=== PATIENT | male | born 1945 | race American Indian/Alaskan Native ===

== ENCOUNTER 2017-08-23 01:49 | Inpatient (IN) | payer MEDICARE, OTHER ==
[~2017-08-23] VITALS: Ht 175.3 cm; Wt 88.8 kg
[~2017-08-23 01:49] MED LIST: BENA5TAB2 PO; CHOL100046 PO; DABI75CA3 PO; DIGO125T78 PO; DILT180C96 PO; DIPH25CA83 PO; FLO0.4C PO; GABA600T2 PO; GLIP5TAB13 PO; HYDR-569 PO; HYDR25TA4 PO; LISI-604 PO; LOVA20TA2 PO; METO-477 PO; MULT-955 PO; POTA10TA19 PO; SITA50TA PO
[2017-08-23] MEDS ORDERED: normal saline 1000ML IV soln IVB ONE (02:00)
[2017-08-23] MEDS ORDERED: nitroGLYCERIN 0.4mg SUBLingual tab SL PRN (02:00)
[2017-08-23] MEDS ORDERED: diltiazem 5mg/ml 5ml inj. IV ONE (02:00)
[2017-08-23] MEDS ORDERED: nitroGLYCERIN 0.4mg/hour patch TD ONE (02:00)
[2017-08-23 02:10] LABS: BASOPHILS % (AUTO) 0.2 % (0-1); EOSINOPHILS # (AUTO) 0.1 X10'3 (0-0.9); EOSINOPHILS % (AUTO) 1.1 % (0-6); HEMATOCRIT 40.5 % (42.0-52.0); HEMOGLOBIN 13.6 g/dl (14.0-17.9); LYMPHOCYTES # (AUTO) 1.3 X10'3 (1.1-4.8); MEAN CORPUSCULAR HEMOGLOBIN 34.5 PG (27.0-31.0); MEAN CORPUSCULAR HGB CONC 33.5 % (33.0-36.5); MEAN CORPUSCULAR VOLUME 103.1 FL (78-98); MEAN PLATELET VOLUME 9.5 FL (7.4-10.4); MONOCYTES # (AUTO) 0.5 X10'3 (0-0.9); MONOCYTES % (AUTO) 3.9 % (2-12); NEUTROPHILS # (AUTO) 9.7 X10'3 (1.8-7.7); NEUTROPHILS % (AUTO) 83.8 % (42-75); PLATELET COUNT 157 X10'3 (140-440); RED BLOOD COUNT 3.93 X10'6 (4.70-6.10); RED CELL DISTRIBUTION WIDTH 15.7 % (11.5-14.5); WHITE BLOOD COUNT 11.5 X10'3 (4.5-11.0)
[2017-08-23 02:17] LABS: INR 1.1 INR; PARTIAL THROMBOPLASTIN TIME 28 SECONDS (22-32); PROTHROMBIN TIME 11.4 SECONDS (9.0-12.0)
[2017-08-23 02:20] LABS: ALANINE AMINOTRANSFERASE 23 U/L (12-78); ALBUMIN 2.8 G/DL (3.4-5.0); ALBUMIN/GLOBULIN RATIO 0.8 (1.1-1.5); ALKALINE PHOSPHATASE 153 IU/L (46-116); ANION GAP 10 (8-16); ASPARTATE AMINO TRANSFERASE 19 U/L (10-37); BILIRUBIN,TOTAL 0.3 MG/DL (0.1-1.0); BLOOD UREA NITROGEN 9 MG/DL (7-18); BUN/CREATININE RATIO 9.6 (5.4-32.0); CALCIUM 8.1 MG/DL (8.5-10.1); CHLORIDE 107 MMOL/L (99-107); CREATININE 0.94 MG/DL (0.60-1.10); GLUCOSE 262 MG/DL (70-104); POTASSIUM 3.9 MMOL/L (3.5-5.1); SODIUM 139 MMOL/L (135-145); TOTAL CARBON DIOXIDE 22.5 MMOL/L (24-32); TOTAL PROTEIN 6.5 G/DL (6.4-8.2); eGFR 78 ML/MIN
[2017-08-23 02:30] LABS: MAGNESIUM 0.8 MG/DL (1.5-2.4)
[2017-08-23] MEDS ORDERED: metoclopramide 5 mg/ml inj IV PRN (02:30)
[2017-08-23] MEDS ORDERED: insulin Lispro (HumaLOG) vial - multi-dose SQ SCH (02:30)
[2017-08-23] MEDS ORDERED: acetaminophen 325mg tablet PO PRN ×2 (02:30)
[2017-08-23] MEDS ORDERED: dextrose ORAL solution 15 GM/59 ML bottle PO PRN ×2 (02:30)
[2017-08-23] MEDS ORDERED: mag hydrox/Alum hydrox/simeth 30ml oral suspension PO PRN (02:30)
[2017-08-23] MEDS ORDERED: HYDROcodone/acetaminophen 5mg/325mg tablet PO PRN (02:30)
[2017-08-23] MEDS ORDERED: acetaminophen 650mg rectal suppository RC PRN (02:30)
[2017-08-23] MEDS ORDERED: morphine sulfate 8 MG/ML SYRINGE IV PRN (02:30)
[2017-08-23] MEDS ORDERED: glucagon, human recombinant 1mg kit SUBCUT PRN (02:30)
[2017-08-23] MEDS ORDERED: dextrose 50%-water 50ml dispensing syringe IV PRN ×2 (02:30)
[2017-08-23] MEDS ORDERED: bisacodyl 10mg suppository rectal RC PRN (02:30)
[2017-08-23] MEDS ORDERED: ondansetron/PF 4mg/2ml inj IV PRN (02:30)
[2017-08-23] MEDS ORDERED: HYDROcodone/acetaminophen 10/325mg tab PO PRN (02:30)
[2017-08-23] MEDS ORDERED: diphenhydrAMINE 25mg capsule PO PRN (02:30)
[2017-08-23] MEDS ORDERED: MESSAGE TO PHARMACY PO ONE (02:30)
[2017-08-23] MEDS ORDERED: magnesium hydroxide 30ml (MOM) UD suspension PO PRN (02:30)
[2017-08-23] MEDS ORDERED: HYDROmorphone 1 mg/ml syringe IV PRN ×2 (02:30)
[2017-08-23] MEDS ORDERED: diphenhydrAMINE 50 mg/ml inj IV PRN (02:30)
[2017-08-23] MEDS ORDERED: magnesium 2GM in 50ml NS 50 ML IV ONE (02:35)
[2017-08-23] MEDS ORDERED: digoxin 250mcg/ml 2ml ampule IV ONE (02:40)
[2017-08-23] MEDS: morphine sulfate 8 MG/ML SYRINGE IV PRN ×2 (03:11→15:16)
[2017-08-23] MEDS ORDERED: morphine sulfate 8 MG/ML SYRINGE IV ONE (03:20)
[2017-08-23 04:30] VITALS: BP 148/91
[2017-08-23] MEDS ORDERED: magnesium 4gm in 100ml NS 100 ML IV PRN (05:50)
[2017-08-23] MEDS ORDERED: magnesium 2GM in 50ml NS 50 ML IV PRN (05:50)
[2017-08-23 06:00] VITALS: BP 147/99
[2017-08-23 06:00] LABS: HEMOGLOBIN A1C 6.3 % (4.5-6.2)
[2017-08-23 06:13] LABS: MAGNESIUM 1.4 MG/DL (1.5-2.4)
[2017-08-23] MEDS ORDERED: diltiazem CD 180mg cap (once-daily) PO SCH (08:00)
[2017-08-23] MEDS ORDERED: furosemide 10 MG/1 ML 10ml inj IV SCH (08:00)
[2017-08-23] MEDS ORDERED: dabigatran 150mg capsule PO SCH (08:00)
[2017-08-23] MEDS ORDERED: lisinopril 5mg tablet PO SCH (08:00)
[2017-08-23] MEDS: digoxin 125mcg (0.125mg) tablet PO SCH (08:07)
[2017-08-23] MEDS: docusate sod 100mg capsule PO SCH ×2 (08:07→21:50)
[2017-08-23] MEDS: magnesium Cl slow-release 64mg tablet PO PRN ×2 (08:07→16:44)
[2017-08-23] MEDS: atorvastatin 10mg tablet PO SCH (08:08)
[2017-08-23] MEDS: gabapentin 300mg capsule PO SCH (08:08)
[2017-08-23] MEDS: lisinopril 5mg tablet PO SCH (08:08)
[2017-08-23] MEDS: metoprolol tartrate 50mg tablet PO SCH ×2 (08:09→21:48)
[2017-08-23] MEDS: aspirin 81mg tablet.DR PO SCH (09:08)
[2017-08-23] MEDS ORDERED: heparin 10,000 units/1 ML INJ IV ONE ×2 (10:25→10:35)
[2017-08-23 11:00] VITALS: BP 128/77
[2017-08-23] MEDS ORDERED: albuterol 2.5 MG/3 ML nebule NEB PRN (13:30)
[2017-08-23] MEDS ORDERED: furosemide 20 MG/2 ML vial IV ONE (13:30)
[2017-08-23 15:00] VITALS: BP 124/75
[2017-08-23 15:01] LABS: ABG BASE EXCESS -2.4 mmol/L (-2.0-3.0); ABG HCO3 21.5 mmol/L (22.0-26.0); ABG OXYGEN SATURATION 89.8 % (95-98); ABG PCO2 (T) 34.8 mmHg (35.0-48.0); ABG PH (T) 7.408 (7.350-7.450); ABG PO2 (T) 56.8 mmHg (83-108); FCOHb 0.7 % (0.5-1.5); FLOW 14 L/min; FMetHb 0.2 % (0.3-1.12); TOTAL HEMOGLOBIN 15.3 G/dl (14.0-18.0)
[2017-08-23] MEDS: cefTRIAXone 1g/NS 100ml IVPB 100 ML IV SCH (16:42)
[2017-08-23] MEDS: potassium Cl 20 mEq SR tablet PO SCH ×2 (16:44→21:49)
[2017-08-23] MEDS: furosemide 10 MG/1 ML 10ml inj IV SCH ×2 (16:46→23:09)
[2017-08-23] MEDS ORDERED: etomidate 2mg/ml inj. ONE (17:00)
[2017-08-23] MEDS ORDERED: rocuronium 10mg/ml inj IV ONE (17:00)
[2017-08-23] MEDS: heparin 10,000 units/1 ML INJ IV PRN (18:30)
[2017-08-23 19:00] VITALS: BP 143/86
[2017-08-23] MEDS: tirofiban 5mg in NS 100mL 100 ML IV SCH ×2 (19:03→23:50)
[2017-08-23] MEDS: nitroGLYCERIN 0.2mg/hour patch TD SCH (19:04)
[2017-08-23 20:10] LABS: ABG HCO3 21.5 mmol/L (22.0-26.0); ABG OXYGEN SATURATION 93.8 % (95-98); ABG PCO2 (T) 34.2 mmHg (35.0-48.0); ABG PH (T) 7.418 (7.350-7.450); ABG PO2 (T) 68.6 mmHg (83-108); FCOHb 0.5 % (0.5-1.5); FLOW 40 L/min; FMetHb 0.2 % (0.3-1.12); FO2Hb 93.1 % (94-100); PATIENT TEMPERATURE 37.3; TOTAL HEMOGLOBIN 15.7 G/dl (14.0-18.0)
[2017-08-23] MEDS ORDERED: temazepam 15mg capsule PO PRN (21:00)
[2017-08-23] MEDS: tamsulosin 0.4mg capsule PO SCH (21:49)
[2017-08-23 23:00] VITALS: BP 105/65
[2017-08-23 23:36] LABS: ABG BASE EXCESS -3.9 mmol/L (-2.0-3.0); ABG HCO3 19.3 mmol/L (22.0-26.0); ABG OXYGEN SATURATION 98.1 % (95-98); ABG PCO2 (T) 30.9 mmHg (35.0-48.0); ABG PH (T) 7.415 (7.350-7.450); ABG PO2 (T) 101.4 mmHg (83-108); FCOHb 0.5 % (0.5-1.5); FMetHb 0.2 % (0.3-1.12); FO2Hb 97.4 % (94-100); MINUTE VOLUME 39 L/min; PATIENT TEMPERATURE 37.2; RESPIRATORY RATE 18 b/min; RESPIRATORY RATE (OBSERVED) 29 b/min; TIDAL VOLUME 866 mL; TOTAL HEMOGLOBIN 15.4 G/dl (14.0-18.0)
[2017-08-24] VITALS (17 sets, daily range): BP systolic 84–109; BP diastolic 54–75
[2017-08-24 02:30] LABS: BASOPHILS % (AUTO) 0.1 % (0-1); EOSINOPHILS % (AUTO) 0.2 % (0-6); HEMATOCRIT 44.2 % (42.0-52.0); HEMOGLOBIN 14.6 g/dl (14.0-17.9); LYMPHOCYTES # (AUTO) 1.1 X10'3 (1.1-4.8); LYMPHOCYTES % (AUTO) 4.5 % (21-51); MEAN CORPUSCULAR HEMOGLOBIN 34.2 PG (27.0-31.0); MEAN CORPUSCULAR HGB CONC 33.1 % (33.0-36.5); MEAN CORPUSCULAR VOLUME 103.4 FL (78-98); MEAN PLATELET VOLUME 9.7 FL (7.4-10.4); MONOCYTES # (AUTO) 0.7 X10'3 (0-0.9); MONOCYTES % (AUTO) 2.9 % (2-12); NEUTROPHILS # (AUTO) 22.8 X10'3 (1.8-7.7); NEUTROPHILS % (AUTO) 92.3 % (42-75); PLATELET COUNT 181 X10'3 (140-440); RED BLOOD COUNT 4.28 X10'6 (4.70-6.10); RED CELL DISTRIBUTION WIDTH 16.8 % (11.5-14.5); WHITE BLOOD COUNT 24.7 X10'3 (4.5-11.0)
[2017-08-24 02:45] LABS: ALANINE AMINOTRANSFERASE 32 U/L (12-78); ALBUMIN 2.7 G/DL (3.4-5.0); ALBUMIN/GLOBULIN RATIO 0.7 (1.1-1.5); ALKALINE PHOSPHATASE 132 IU/L (46-116); ANION GAP 10 (8-16); ASPARTATE AMINO TRANSFERASE 137 U/L (10-37); BILIRUBIN,TOTAL 0.9 MG/DL (0.1-1.0); BLOOD UREA NITROGEN 19 MG/DL (7-18); BUN/CREATININE RATIO 14.2 (5.4-32.0); CALCIUM 8.6 MG/DL (8.5-10.1); CHLORIDE 103 MMOL/L (99-107); CHOL/HDL RATIO 3.6 (0.00-4.99); CHOLESTEROL 174 MG/DL (0-200); CREATININE 1.34 MG/DL (0.60-1.10); GLUCOSE 246 MG/DL (70-104); HDL CHOLESTEROL 49 MG/DL (35-60); LDL CHOLESTEROL 111 MG/DL (50-100); MAGNESIUM 1.1 MG/DL (1.5-2.4); POTASSIUM 5.4 MMOL/L (3.5-5.1); SODIUM 137 MMOL/L (135-145); TOTAL CARBON DIOXIDE 23.7 MMOL/L (24-32); TOTAL PROTEIN 6.7 G/DL (6.4-8.2); TRIGLYCERIDES 169 MG/DL (20-135); eGFR 52 ML/MIN
[2017-08-24] MEDS: tirofiban 5mg in NS 100mL 100 ML IV SCH ×4 (05:36→22:57)
[2017-08-24] MEDS: heparin 10,000 units/1 ML INJ IV PRN (07:07)
[2017-08-24] MEDS: aspirin 81mg tablet.DR PO SCH (07:35)
[2017-08-24] MEDS: docusate sod 100mg capsule PO SCH ×2 (07:35→20:00)
[2017-08-24] MEDS: lisinopril 5mg tablet PO SCH (07:35)
[2017-08-24] MEDS: atorvastatin 10mg tablet PO SCH (07:35)
[2017-08-24] MEDS: metoprolol tartrate 50mg tablet PO SCH ×2 (07:35→20:00)
[2017-08-24] MEDS: furosemide 10 MG/1 ML 10ml inj IV SCH ×2 (07:35→16:22)
[2017-08-24] MEDS: gabapentin 300mg capsule PO SCH (07:35)
[2017-08-24] MEDS: digoxin 125mcg (0.125mg) tablet PO SCH (07:40)
[2017-08-24] MEDS: potassium Cl 20 mEq SR tablet PO SCH ×3 (07:41→21:00)
[2017-08-24] MEDS: cefTRIAXone 1g/NS 100ml IVPB 100 ML IV SCH (07:41)
[2017-08-24] MEDS: nitroGLYCERIN 0.2mg/hour patch TD SCH (07:42)
[2017-08-24] MEDS: magnesium Cl slow-release 64mg tablet PO PRN (07:44)
[2017-08-24] MEDS: cefepime 2g/NS 100ml ADVANTAGE 100 ML IV SCH ×2 (09:00→20:29)
[2017-08-24] MEDS ORDERED: morphine sulfate 8 MG/ML SYRINGE IV PRN ×2 (10:45)
[2017-08-24] MEDS ORDERED: NORepinephrine 8mg/ 250ml NS 250 ML IV ONE (10:49)
[2017-08-24] MEDS ORDERED: MIDAZolam 5mg/ml 2ml vial IV ONE (10:50)
[2017-08-24] MEDS ORDERED: NORepinephrine 8mg/ 250ml NS 250 ML IV SCH ×2 (10:50→11:20)
[2017-08-24] MEDS ORDERED: MIDAZolam 5mg/ml 2ml vial ONE (10:50)
[2017-08-24] MEDS ORDERED: ipratropium/albuterol 3ml nebule NEB PRN (11:30)
[2017-08-24 11:41] LABS: ABG BASE EXCESS -3.4 mmol/L (-2.0-3.0); ABG HCO3 24.3 mmol/L (22.0-26.0); ABG OXYGEN SATURATION 86.4 % (95-98); ABG PCO2 (T) 58.6 mmHg (35.0-48.0); ABG PH (T) 7.244 (7.350-7.450); ABG PO2 (T) 69.2 mmHg (83-108); FCOHb 0.4 % (0.5-1.5); FLOW 40 L/min; FMetHb 0.2 % (0.3-1.12); FO2Hb 85.9 % (94-100); MINUTE VOLUME 6 L/min; PATIENT TEMPERATURE 38.6; PEEP 8 cm H2O; RESPIRATORY RATE 14 b/min; RESPIRATORY RATE (OBSERVED) 14 b/min; TIDAL VOLUME 400 mL; TOTAL HEMOGLOBIN 14.3 G/dl (14.0-18.0)
[2017-08-24] MEDS: levoFLOXACIN-Levaquin 500mg/D5 100 ML IV SCH (11:46)
[2017-08-24] MEDS: DOBUTamine-DoBUTrex 500mg/D5W 250 ML IV SCH (12:04)
[2017-08-24 13:23] LABS: D-DIMER 1.08 MG/L FEU (0-0.50)
[2017-08-24] MEDS: methylPREDNISolone sod succ/PF 40mg inj. IV SCH ×2 (14:19→20:29)
[2017-08-24] MEDS ORDERED: gelatin sponge, absorbable (Gelfoam 100) sponge TP ONE (15:50)
[2017-08-24] MEDS: ipratropium/albuterol 3ml nebule NEB SCH ×3 (16:10→22:26)
[2017-08-24 17:46] LABS: ABG BASE EXCESS -2.5 mmol/L (-2.0-3.0); ABG HCO3 22.2 mmol/L (22.0-26.0); ABG PH (T) 7.384 (7.350-7.450); ABG PO2 (T) 152.2 mmHg (83-108); FCOHb 0.4 % (0.5-1.5); FMetHb 0.3 % (0.3-1.12); FO2Hb 98.3 % (94-100); MINUTE VOLUME 8 L/min; PEEP 10 cm H2O; RESPIRATORY RATE 18 b/min; RESPIRATORY RATE (OBSERVED) 18 b/min; TIDAL VOLUME 400 mL; TOTAL HEMOGLOBIN 13.6 G/dl (14.0-18.0)
[2017-08-24] MEDS: tamsulosin 0.4mg capsule PO SCH (20:30)
[2017-08-24] MEDS ORDERED: insulin regular, human vial - multi-dose SQ SCH (23:20)
[2017-08-25] VITALS (24 sets, daily range): BP systolic 83–128; BP diastolic 48–75
[2017-08-25] MEDS ORDERED: insulin regular, human vial - multi-dose ONE (00:20)
[2017-08-25 01:00] LABS: ALANINE AMINOTRANSFERASE 25 U/L (12-78); ALBUMIN 2.2 G/DL (3.4-5.0); ALBUMIN/GLOBULIN RATIO 0.6 (1.1-1.5); ALKALINE PHOSPHATASE 94 IU/L (46-116); ANION GAP 11 (8-16); ASPARTATE AMINO TRANSFERASE 86 U/L (10-37); BILIRUBIN,TOTAL 0.5 MG/DL (0.1-1.0); BLOOD UREA NITROGEN 26 MG/DL (7-18); BUN/CREATININE RATIO 17.9 (5.4-32.0); CHLORIDE 104 MMOL/L (99-107); CREATININE 1.45 MG/DL (0.60-1.10); GLUCOSE 328 MG/DL (70-104); POTASSIUM 4.2 MMOL/L (3.5-5.1); SODIUM 138 MMOL/L (135-145); TOTAL PROTEIN 6.1 G/DL (6.4-8.2); eGFR 48 ML/MIN
[2017-08-25 01:03] LABS: MAGNESIUM 2.3 MG/DL (1.5-2.4)
[2017-08-25 01:05] LABS: TROPONIN I 12.02 NG/ML (0.0-0.05)
[2017-08-25 01:06] LABS: BASOPHILS % (AUTO) 0.2 % (0-1); EOSINOPHILS % (AUTO) 0 % (0-6); HEMATOCRIT 36.3 % (42.0-52.0); HEMOGLOBIN 12.3 g/dl (14.0-17.9); LYMPHOCYTES # (AUTO) 0.4 X10'3 (1.1-4.8); LYMPHOCYTES % (AUTO) 2.9 % (21-51); MEAN CORPUSCULAR HEMOGLOBIN 34.8 PG (27.0-31.0); MEAN CORPUSCULAR HGB CONC 33.8 % (33.0-36.5); MEAN CORPUSCULAR VOLUME 102.8 FL (78-98); MEAN PLATELET VOLUME 10.8 FL (7.4-10.4); MONOCYTES # (AUTO) 0.2 X10'3 (0-0.9); MONOCYTES % (AUTO) 1.3 % (2-12); NEUTROPHILS # (AUTO) 11.8 X10'3 (1.8-7.7); NEUTROPHILS % (AUTO) 95.6 % (42-75); PLATELET COUNT 156 X10'3 (140-440); RED BLOOD COUNT 3.54 X10'6 (4.70-6.10); RED CELL DISTRIBUTION WIDTH 15.7 % (11.5-14.5); WHITE BLOOD COUNT 12.4 X10'3 (4.5-11.0)
[2017-08-25] MEDS: ipratropium/albuterol 3ml nebule NEB SCH ×6 (02:12→23:14)
[2017-08-25] MEDS: methylPREDNISolone sod succ/PF 40mg inj. IV SCH ×4 (02:21→20:21)
[2017-08-25] MEDS: midazolam 100mg in NS 100ml 100 ML IV PRN (02:26)
[2017-08-25 02:41] LABS: ABG BASE EXCESS -4.7 mmol/L (-2.0-3.0); ABG OXYGEN SATURATION 97.9 % (95-98); ABG PCO2 (T) 35.8 mmHg (35.0-48.0); ABG PH (T) 7.364 (7.350-7.450); ABG PO2 (T) 110.3 mmHg (83-108); FCOHb 0.3 % (0.5-1.5); FMetHb 0.4 % (0.3-1.12); FO2Hb 97.2 % (94-100); MINUTE VOLUME 12 L/min; PATIENT TEMPERATURE 36.7; PEEP 10 cm H2O; RESPIRATORY RATE 18 b/min; RESPIRATORY RATE (OBSERVED) 24 b/min; TIDAL VOLUME 400 mL; TOTAL HEMOGLOBIN 13.2 G/dl (14.0-18.0)
[2017-08-25] MEDS: furosemide 10 MG/1 ML 10ml inj IV SCH ×3 (03:40→16:46)
[2017-08-25] MEDS: tirofiban 5mg in NS 100mL 100 ML IV SCH ×4 (04:57→23:19)
[2017-08-25] MEDS ORDERED: LIDOcaine 1%/PF (10mg/ml) 5ml vial ONE (05:56)
[2017-08-25] MEDS ORDERED: iohexol 350MG/ML 100ml bottle IV ONE ×2 (05:56→06:48)
[2017-08-25] MEDS ORDERED: iohexol 350 MG/ML 50ML vial IV ONE (06:29)
[2017-08-25] MEDS ORDERED: heparin 1,000unit/ml 10ml vial 10 ML ONE (06:53)
[2017-08-25] MEDS: metoprolol tartrate 50mg tablet PO SCH ×2 (08:00→20:00)
[2017-08-25] MEDS: docusate sod 100mg capsule PO SCH (08:00)
[2017-08-25] MEDS: potassium Cl 20 mEq SR tablet PO SCH ×3 (08:00→20:25)
[2017-08-25] MEDS: lactobacillus rhamnosus 10,000 MMU CELLS/CAPSULE PO SCH ×3 (08:00→20:21)
[2017-08-25] MEDS: lisinopril 5mg tablet PO SCH (08:00)
[2017-08-25] MEDS: nitroGLYCERIN 0.2mg/hour patch TD SCH (08:00)
[2017-08-25] MEDS ORDERED: ondansetron/PF 4mg/2ml inj IV PRN (08:10)
[2017-08-25] MEDS ORDERED: HYDROcodone/acetaminophen 5mg/325mg tablet PO PRN (08:10)
[2017-08-25] MEDS: cefepime 2g/NS 100ml ADVANTAGE 100 ML IV SCH ×2 (08:13→20:22)
[2017-08-25] MEDS ORDERED: HYDROcodone/acetaminophen 10/325mg tab PO PRN (08:15)
[2017-08-25] MEDS ORDERED: proCHLORperazine 10 MG/2 ml inj IV PRN (08:15)
[2017-08-25] MEDS: atorvastatin 10mg tablet PO SCH (08:16)
[2017-08-25] MEDS: digoxin 125mcg (0.125mg) tablet PO SCH (08:16)
[2017-08-25] MEDS: gabapentin 300mg capsule PO SCH (08:16)
[2017-08-25] MEDS ORDERED: clopidogrel 300mg tablet NG ONE (08:20)
[2017-08-25 08:54] LABS: CHOLESTEROL 129 MG/DL (0-200); HDL CHOLESTEROL 32 MG/DL (35-60); LDL CHOLESTEROL 73 MG/DL (50-100); TRIGLYCERIDES 128 MG/DL (20-135)
[2017-08-25] MEDS: levoFLOXACIN-Levaquin 500mg/D5 100 ML IV SCH (08:54)
[2017-08-25] MEDS ORDERED: insulin regular, human vial - multi-dose SQ SCH (09:05)
[2017-08-25] MEDS: aspirin 81mg tablet.DR PO SCH (11:04)
[2017-08-25] MEDS ORDERED: amiodarone 150mg/dext, iso-os 100 ML IV ONE (11:50)
[2017-08-25] MEDS: FENTANYL-0.9 % NACL/PF 100 ML IV PRN (12:05)
[2017-08-25] MEDS: amiodarone/D5 360MG/200ML BAG 200 ML IV SCH ×2 (12:09→18:02)
[2017-08-25] MEDS ORDERED: MESSAGE TO PHARMACY PO ONE (12:20)
[2017-08-25] MEDS ORDERED: dextrose ORAL solution 15 GM/59 ML bottle PO PRN ×2 (12:20)
[2017-08-25] MEDS ORDERED: glucagon, human recombinant 1mg kit SUBCUT PRN (12:20)
[2017-08-25] MEDS ORDERED: dextrose 50%-water 50ml dispensing syringe IV PRN ×2 (12:20)
[2017-08-25] MEDS ORDERED: insulin Lispro (HumaLOG) vial - multi-dose SQ SCH (12:20)
[2017-08-25] MEDS: mineral oil/petrolatum ophthal oint EACHEYE SCH ×2 (14:00→20:21)
[2017-08-25] MEDS: thiamine 100mg tablet PO SCH (14:54)
[2017-08-25] MEDS: folic acid 1mg tablet PO SCH (14:54)
[2017-08-25] MEDS: multivitamins, therapeutics tablet PO SCH (14:54)
[2017-08-25] MEDS: insulin regular, human vial - multi-dose SQ SCH ×2 (15:13→21:08)
[2017-08-25] MEDS ORDERED: gelatin sponge, absorbable (Gelfoam 100) sponge TP ONE (20:00)
[2017-08-25] MEDS: tamsulosin 0.4mg capsule PO SCH (20:24)
[2017-08-25] MEDS: insulin glargine (Lantus) pen - multi-dose SQ SCH ×2 (21:00→21:07)
[2017-08-25] MEDS ORDERED: docusate sodium 100mg/10ml UD cup PO ONE (21:25)
[2017-08-25] MEDS: DOBUTamine-DoBUTrex 500mg/D5W 250 ML IV SCH (23:15)
[2017-08-26] VITALS (24 sets, daily range): BP systolic 85–128; BP diastolic 47–68
[2017-08-26 00:50] LABS: BASOPHILS % (AUTO) 0.1 % (0-1); EOSINOPHILS # (AUTO) 0.1 X10'3 (0-0.9); HEMATOCRIT 31.7 % (42.0-52.0); HEMOGLOBIN 10.3 g/dl (14.0-17.9); LYMPHOCYTES # (AUTO) 0.4 X10'3 (1.1-4.8); MEAN CORPUSCULAR HEMOGLOBIN 33.9 PG (27.0-31.0); MEAN CORPUSCULAR HGB CONC 32.6 % (33.0-36.5); MEAN CORPUSCULAR VOLUME 103.8 FL (78-98); MEAN PLATELET VOLUME 9.4 FL (7.4-10.4); MONOCYTES # (AUTO) 0.5 X10'3 (0-0.9); MONOCYTES % (AUTO) 3.6 % (2-12); NEUTROPHILS # (AUTO) 12.1 X10'3 (1.8-7.7); NEUTROPHILS % (AUTO) 92.3 % (42-75); PLATELET COUNT 138 X10'3 (140-440); RED BLOOD COUNT 3.05 X10'6 (4.70-6.10); RED CELL DISTRIBUTION WIDTH 16.3 % (11.5-14.5); WHITE BLOOD COUNT 13.1 X10'3 (4.5-11.0)
[2017-08-26 01:04] LABS: ALANINE AMINOTRANSFERASE 21 U/L (12-78); ALBUMIN 2.1 G/DL (3.4-5.0); ALBUMIN/GLOBULIN RATIO 0.6 (1.1-1.5); ALKALINE PHOSPHATASE 73 IU/L (46-116); ANION GAP 12 (8-16); ASPARTATE AMINO TRANSFERASE 46 U/L (10-37); BILIRUBIN,TOTAL 0.3 MG/DL (0.1-1.0); BLOOD UREA NITROGEN 29 MG/DL (7-18); CALCIUM 7.8 MG/DL (8.5-10.1); CHLORIDE 104 MMOL/L (99-107); CREATININE 1.38 MG/DL (0.60-1.10); GLUCOSE 383 MG/DL (70-104); MAGNESIUM 1.8 MG/DL (1.5-2.4); POTASSIUM 3.2 MMOL/L (3.5-5.1); SODIUM 139 MMOL/L (135-145); TOTAL CARBON DIOXIDE 23.5 MMOL/L (24-32); TOTAL PROTEIN 5.8 G/DL (6.4-8.2); eGFR 50 ML/MIN
[2017-08-26] MEDS ORDERED: potassium Cl 40MEQ/250ML bag 250 ML IV PRN ×2 (01:55)
[2017-08-26] MEDS ORDERED: potassium Cl 40MEQ/250ML bag 250 ML IV ONE (02:12)
[2017-08-26] MEDS: mineral oil/petrolatum ophthal oint EACHEYE SCH ×4 (02:16→20:06)
[2017-08-26] MEDS: furosemide 20 MG/2 ML vial IV SCH ×3 (02:16→16:33)
[2017-08-26] MEDS: methylPREDNISolone sod succ/PF 40mg inj. IV SCH ×4 (02:16→20:08)
[2017-08-26] MEDS: insulin regular, human vial - multi-dose SQ SCH ×4 (02:28→20:21)
[2017-08-26] MEDS: ipratropium/albuterol 3ml nebule NEB SCH ×6 (03:22→22:55)
[2017-08-26 03:35] LABS: ABG BASE EXCESS -1.5 mmol/L (-2.0-3.0); ABG HCO3 22.5 mmol/L (22.0-26.0); ABG OXYGEN SATURATION 99.2 % (95-98); ABG PCO2 (T) 35.6 mmHg (35.0-48.0); ABG PH (T) 7.421 (7.350-7.450); ABG PO2 (T) 210.1 mmHg (83-108); FCOHb 0.3 % (0.5-1.5); FMetHb 0.3 % (0.3-1.12); FO2Hb 98.6 % (94-100); MINUTE VOLUME 12 L/min; PATIENT TEMPERATURE 37.1; PEEP 10 cm H2O; RESPIRATORY RATE 18 b/min; RESPIRATORY RATE (OBSERVED) 22 b/min; TIDAL VOLUME 400 mL; TOTAL HEMOGLOBIN 11.3 G/dl (14.0-18.0)
[2017-08-26] MEDS: tirofiban 5mg in NS 100mL 100 ML IV SCH (04:08)
[2017-08-26] MEDS: amiodarone/D5 360MG/200ML BAG 200 ML IV SCH (06:03)
[2017-08-26] MEDS: lactobacillus rhamnosus 10,000 MMU CELLS/CAPSULE PO SCH ×2 (07:51→20:08)
[2017-08-26] MEDS: digoxin 125mcg (0.125mg) tablet PO SCH (07:51)
[2017-08-26] MEDS: potassium Cl 20 mEq SR tablet PO SCH ×3 (07:51→20:25)
[2017-08-26] MEDS: gabapentin 300mg capsule PO SCH (07:51)
[2017-08-26] MEDS: levoFLOXACIN-Levaquin 500mg/D5 100 ML IV SCH (07:51)
[2017-08-26] MEDS: aspirin 81mg tablet.DR PO SCH (07:52)
[2017-08-26] MEDS: lisinopril 5mg tablet PO SCH (07:52)
[2017-08-26] MEDS: multivitamins, therapeutics tablet PO SCH (07:52)
[2017-08-26] MEDS: carVEDilol 3.125mg tablet PO SCH ×2 (07:52→20:08)
[2017-08-26] MEDS: atorvastatin 10mg tablet PO SCH (07:52)
[2017-08-26] MEDS: docusate sodium 100mg/10ml UD cup PO SCH ×2 (07:52→20:08)
[2017-08-26] MEDS: folic acid 1mg tablet PO SCH (07:52)
[2017-08-26] MEDS: thiamine 100mg tablet PO SCH (07:52)
[2017-08-26] MEDS: K and/or MAG REPLACEMENT MC SCH (07:54)
[2017-08-26] MEDS: cefepime 2g/NS 100ml ADVANTAGE 100 ML IV SCH ×2 (08:00→20:07)
[2017-08-26] MEDS: dabigatran 150mg capsule PO SCH ×2 (09:55→11:57)
[2017-08-26 11:42] LABS: PREALBUMIN 12.8 MG/DL (19-36)
[2017-08-26] MEDS: clopidogrel 75mg tablet PO SCH (12:05)
[2017-08-26] MEDS: midazolam 100mg in NS 100ml 100 ML IV PRN (16:50)
[2017-08-26] MEDS: amiodarone 200mg tablet PO SCH (20:08)
[2017-08-26] MEDS: apixaban 5mg tablet PO SCH (20:08)
[2017-08-26] MEDS: insulin glargine (Lantus) pen - multi-dose SQ SCH ×2 (20:24→21:00)
[2017-08-26] MEDS: tamsulosin 0.4mg capsule PO SCH (20:25)
[2017-08-27] VITALS (24 sets, daily range): BP systolic 81–121; BP diastolic 47–64
[2017-08-27] MEDS: furosemide 20 MG/2 ML vial IV SCH ×2 (00:39→09:07)
[2017-08-27] MEDS: mineral oil/petrolatum ophthal oint EACHEYE SCH ×3 (02:37→14:00)
[2017-08-27] MEDS: methylPREDNISolone sod succ/PF 40mg inj. IV SCH ×2 (02:37→09:07)
[2017-08-27 02:38] LABS: BASOPHILS % (AUTO) 0 % (0-1); EOSINOPHILS % (AUTO) 0 % (0-6); HEMOGLOBIN 9.5 g/dl (14.0-17.9); LYMPHOCYTES # (AUTO) 0.6 X10'3 (1.1-4.8); LYMPHOCYTES % (AUTO) 2.9 % (21-51); MEAN CORPUSCULAR HEMOGLOBIN 34.9 PG (27.0-31.0); MEAN CORPUSCULAR HGB CONC 34.1 % (33.0-36.5); MEAN CORPUSCULAR VOLUME 102.3 FL (78-98); MEAN PLATELET VOLUME 10.3 FL (7.4-10.4); MONOCYTES # (AUTO) 0.9 X10'3 (0-0.9); MONOCYTES % (AUTO) 4.6 % (2-12); NEUTROPHILS # (AUTO) 19.1 X10'3 (1.8-7.7); NEUTROPHILS % (AUTO) 92.5 % (42-75); PLATELET COUNT 185 X10'3 (140-440); RED BLOOD COUNT 2.74 X10'6 (4.70-6.10); WHITE BLOOD COUNT 20.6 X10'3 (4.5-11.0)
[2017-08-27] MEDS: insulin regular, human vial - multi-dose SQ SCH ×2 (02:47→09:52)
[2017-08-27 02:50] LABS: ALANINE AMINOTRANSFERASE 24 U/L (12-78); ALBUMIN 2.1 G/DL (3.4-5.0); ALBUMIN/GLOBULIN RATIO 0.6 (1.1-1.5); ALKALINE PHOSPHATASE 73 IU/L (46-116); ANION GAP 8 (8-16); ASPARTATE AMINO TRANSFERASE 29 U/L (10-37); BILIRUBIN,TOTAL 0.3 MG/DL (0.1-1.0); BLOOD UREA NITROGEN 57 MG/DL (7-18); BUN/CREATININE RATIO 33.1 (5.4-32.0); CALCIUM 8.3 MG/DL (8.5-10.1); CHLORIDE 109 MMOL/L (99-107); CREATININE 1.72 MG/DL (0.60-1.10); GLUCOSE 251 MG/DL (70-104); MAGNESIUM 1.8 MG/DL (1.5-2.4); POTASSIUM 4.2 MMOL/L (3.5-5.1); SODIUM 141 MMOL/L (135-145); TOTAL CARBON DIOXIDE 24.5 MMOL/L (24-32); TOTAL PROTEIN 5.5 G/DL (6.4-8.2); eGFR 39 ML/MIN
[2017-08-27] MEDS: ipratropium/albuterol 3ml nebule NEB SCH ×6 (03:15→23:04)
[2017-08-27 03:31] LABS: ABG BASE EXCESS -0.8 mmol/L (-2.0-3.0); ABG HCO3 23.4 mmol/L (22.0-26.0); ABG OXYGEN SATURATION 97.8 % (95-98); ABG PCO2 (T) 35.7 mmHg (35.0-48.0); ABG PH (T) 7.431 (7.350-7.450); ABG PO2 (T) 103.1 mmHg (83-108); ALLEN'S TEST Positive; FCOHb 0.3 % (0.5-1.5); FMetHb 0.1 % (0.3-1.12); FO2Hb 97.4 % (94-100); MINUTE VOLUME 7 L/min; PATIENT TEMPERATURE 36.3; PEEP 5 cm H2O; RESPIRATORY RATE 18 b/min; RESPIRATORY RATE (OBSERVED) 20 b/min; TIDAL VOLUME 400 mL; TOTAL HEMOGLOBIN 10.4 G/dl (14.0-18.0)
[2017-08-27] MEDS: FENTANYL-0.9 % NACL/PF 100 ML IV PRN (04:37)
[2017-08-27] MEDS: K and/or MAG REPLACEMENT MC SCH (07:21)
[2017-08-27] MEDS: lisinopril 5mg tablet PO SCH (07:22)
[2017-08-27] MEDS: carVEDilol 3.125mg tablet PO SCH ×2 (07:22→20:00)
[2017-08-27] MEDS: apixaban 5mg tablet PO SCH (08:00)
[2017-08-27] MEDS: docusate sodium 100mg/10ml UD cup PO SCH ×2 (09:07→20:00)
[2017-08-27] MEDS: levoFLOXACIN-Levaquin 500mg/D5 100 ML IV SCH (09:08)
[2017-08-27] MEDS: thiamine 100mg tablet PO SCH (09:10)
[2017-08-27] MEDS: lactobacillus rhamnosus 10,000 MMU CELLS/CAPSULE PO SCH ×2 (09:11→20:55)
[2017-08-27] MEDS: aspirin 81mg tablet.DR PO SCH (09:11)
[2017-08-27] MEDS: folic acid 1mg tablet PO SCH (09:11)
[2017-08-27] MEDS: amiodarone 200mg tablet PO SCH ×2 (09:11→20:56)
[2017-08-27] MEDS: multivitamins, therapeutics tablet PO SCH (09:11)
[2017-08-27] MEDS: potassium Cl 20 mEq SR tablet PO SCH ×3 (09:11→20:55)
[2017-08-27] MEDS: gabapentin 300mg capsule PO SCH (09:12)
[2017-08-27] MEDS: atorvastatin 10mg tablet PO SCH (09:12)
[2017-08-27] MEDS: clopidogrel 75mg tablet PO SCH (09:12)
[2017-08-27] MEDS: digoxin 125mcg (0.125mg) tablet PO SCH (09:12)
[2017-08-27] MEDS: cefepime 2g/NS 100ml ADVANTAGE 100 ML IV SCH (09:15)
[2017-08-27] MEDS ORDERED: Dextrose 10%-water IV solution 1,000 ML IV SCH ×2 (11:25→15:10)
[2017-08-27] MEDS ORDERED: pantoprazole 40 MG vial IV SCH (11:42)
[2017-08-27] MEDS: insulin Lispro (HumaLOG) vial - multi-dose SQ SCH (17:21)
[2017-08-27] MEDS: tamsulosin 0.4mg capsule PO SCH (20:56)
[2017-08-27] MEDS: pantoprazole 40mg Tablet.DR PO SCH (20:56)
[2017-08-27] MEDS: DABIGATRAN 150 MG PO SCH (20:56)
[2017-08-27] MEDS: insulin glargine (Lantus) pen - multi-dose SQ SCH (21:32)
[2017-08-28] VITALS (26 sets, daily range): BP systolic 101–131; BP diastolic 49–70
[2017-08-28] MEDS: ipratropium/albuterol 3ml nebule NEB SCH ×6 (03:08→23:16)
[2017-08-28 03:11] LABS: BASOPHILS # (AUTO) 0.1 X10'3 (0-0.2); BASOPHILS % (AUTO) 0.4 % (0-1); EOSINOPHILS % (AUTO) 0 % (0-6); HEMATOCRIT 27.7 % (42.0-52.0); HEMOGLOBIN 9.1 g/dl (14.0-17.9); LYMPHOCYTES # (AUTO) 0.9 X10'3 (1.1-4.8); LYMPHOCYTES % (AUTO) 6.5 % (21-51); MEAN CORPUSCULAR HEMOGLOBIN 33.9 PG (27.0-31.0); MEAN CORPUSCULAR HGB CONC 32.7 % (33.0-36.5); MEAN CORPUSCULAR VOLUME 103.5 FL (78-98); MEAN PLATELET VOLUME 10.3 FL (7.4-10.4); NEUTROPHILS # (AUTO) 11.1 X10'3 (1.8-7.7); NEUTROPHILS % (AUTO) 85.1 % (42-75); PLATELET COUNT 136 X10'3 (140-440); RED BLOOD COUNT 2.68 X10'6 (4.70-6.10); RED CELL DISTRIBUTION WIDTH 16.8 % (11.5-14.5); WHITE BLOOD COUNT 13.1 X10'3 (4.5-11.0)
[2017-08-28 03:27] LABS: ALANINE AMINOTRANSFERASE 25 U/L (12-78); ALBUMIN 2.2 G/DL (3.4-5.0); ALBUMIN/GLOBULIN RATIO 0.7 (1.1-1.5); ALKALINE PHOSPHATASE 73 IU/L (46-116); ANION GAP 6 (8-16); ASPARTATE AMINO TRANSFERASE 27 U/L (10-37); BILIRUBIN,TOTAL 0.4 MG/DL (0.1-1.0); BLOOD UREA NITROGEN 65 MG/DL (7-18); BUN/CREATININE RATIO 44.8 (5.4-32.0); CALCIUM 8.8 MG/DL (8.5-10.1); CHLORIDE 109 MMOL/L (99-107); CREATININE 1.45 MG/DL (0.60-1.10); GLUCOSE 237 MG/DL (70-104); MAGNESIUM 2.1 MG/DL (1.5-2.4); POTASSIUM 4.5 MMOL/L (3.5-5.1); SODIUM 141 MMOL/L (135-145); TOTAL CARBON DIOXIDE 26.3 MMOL/L (24-32); TOTAL PROTEIN 5.5 G/DL (6.4-8.2); eGFR 48 ML/MIN
[2017-08-28] MEDS: multivitamins, therapeutics tablet PO SCH (07:58)
[2017-08-28] MEDS: levoFLOXACIN-Levaquin 250mg/D5 50 ML IV SCH (07:58)
[2017-08-28] MEDS: clopidogrel 75mg tablet PO SCH (07:58)
[2017-08-28] MEDS: amiodarone 200mg tablet PO SCH ×2 (07:59→20:19)
[2017-08-28] MEDS: lactobacillus rhamnosus 10,000 MMU CELLS/CAPSULE PO SCH ×2 (07:59→20:19)
[2017-08-28] MEDS: pantoprazole 40mg Tablet.DR PO SCH (07:59)
[2017-08-28] MEDS: lisinopril 5mg tablet PO SCH (07:59)
[2017-08-28] MEDS: thiamine 100mg tablet PO SCH (07:59)
[2017-08-28] MEDS: carVEDilol 3.125mg tablet PO SCH ×2 (07:59→20:19)
[2017-08-28] MEDS: digoxin 125mcg (0.125mg) tablet PO SCH (07:59)
[2017-08-28] MEDS: K and/or MAG REPLACEMENT MC SCH (08:00)
[2017-08-28] MEDS: docusate sodium 100mg/10ml UD cup PO SCH ×2 (08:00→20:00)
[2017-08-28] MEDS: aspirin 81mg tablet.DR PO SCH (08:00)
[2017-08-28] MEDS: potassium Cl 20 mEq SR tablet PO SCH ×3 (08:00→20:40)
[2017-08-28] MEDS: folic acid 1mg tablet PO SCH (08:00)
[2017-08-28] MEDS: atorvastatin 10mg tablet PO SCH (08:00)
[2017-08-28] MEDS: DABIGATRAN 150 MG PO SCH ×2 (08:02→20:19)
[2017-08-28] MEDS: gabapentin 300mg capsule PO SCH (08:04)
[2017-08-28] MEDS: insulin Lispro (HumaLOG) vial - multi-dose SQ SCH ×2 (09:50→13:49)
[2017-08-28] MEDS: NUT.TX.GLUC.INTOLER,LAC-FR,REG (BOOST GLUCOSE CONTROL) 237 ML PO SCH (18:58)
[2017-08-28] MEDS: tamsulosin 0.4mg capsule PO SCH (20:19)
[2017-08-28] MEDS: insulin glargine (Lantus) pen - multi-dose SQ SCH (21:00)
[2017-08-29] VITALS (24 sets, daily range): BP systolic 100–166; BP diastolic 46–94
[2017-08-29] MEDS: ipratropium/albuterol 3ml nebule NEB SCH ×6 (02:50→23:43)
[2017-08-29 05:29] LABS: BASOPHILS # (AUTO) 0.1 X10'3 (0-0.2); EOSINOPHILS # (AUTO) 0.2 X10'3 (0-0.9); EOSINOPHILS % (AUTO) 1.5 % (0-6); HEMATOCRIT 29.8 % (42.0-52.0); HEMOGLOBIN 9.9 g/dl (14.0-17.9); LYMPHOCYTES % (AUTO) 8.4 % (21-51); MEAN CORPUSCULAR HGB CONC 33.4 % (33.0-36.5); MEAN CORPUSCULAR VOLUME 98.9 FL (78-98); MEAN PLATELET VOLUME 10.8 FL (7.4-10.4); MONOCYTES # (AUTO) 0.9 X10'3 (0-0.9); MONOCYTES % (AUTO) 7.2 % (2-12); NEUTROPHILS # (AUTO) 10.2 X10'3 (1.8-7.7); NEUTROPHILS % (AUTO) 81.9 % (42-75); PLATELET COUNT 138 X10'3 (140-440); RED BLOOD COUNT 3.01 X10'6 (4.70-6.10); RED CELL DISTRIBUTION WIDTH 19.6 % (11.5-14.5); WHITE BLOOD COUNT 12.4 X10'3 (4.5-11.0)
[2017-08-29 05:53] LABS: ALBUMIN 2.1 G/DL (3.4-5.0); ANION GAP 8 (8-16); BLOOD UREA NITROGEN 49 MG/DL (7-18); BUN/CREATININE RATIO 41.9 (5.4-32.0); CHLORIDE 107 MMOL/L (99-107); CREATININE 1.17 MG/DL (0.60-1.10); GLUCOSE 200 MG/DL (70-104); PHOSPHORUS 2.1 MG/DL (2.3-4.5); POTASSIUM 4.6 MMOL/L (3.5-5.1); SODIUM 139 MMOL/L (135-145); TOTAL CARBON DIOXIDE 24.2 MMOL/L (24-32); eGFR 61 ML/MIN
[2017-08-29 07:18] LABS: ANISOCYTOSIS 2+; PLATELET ESTIMATE DECREASED; TOTAL CELLS COUNTED 100
[2017-08-29 07:19] LABS: LARGE PLATELETS FEW
[2017-08-29] MEDS: NUT.TX.GLUC.INTOLER,LAC-FR,REG (BOOST GLUCOSE CONTROL) 237 ML PO SCH ×3 (08:00→18:40)
[2017-08-29] MEDS: docusate sodium 100mg/10ml UD cup PO SCH ×2 (08:00→18:40)
[2017-08-29] MEDS: levoFLOXACIN-Levaquin 250mg/D5 50 ML IV SCH (08:11)
[2017-08-29] MEDS: folic acid 1mg tablet PO SCH (08:12)
[2017-08-29] MEDS: thiamine 100mg tablet PO SCH (08:12)
[2017-08-29] MEDS: lisinopril 5mg tablet PO SCH (08:12)
[2017-08-29] MEDS: potassium Cl 20 mEq SR tablet PO SCH ×3 (08:13→21:00)
[2017-08-29] MEDS: amiodarone 200mg tablet PO SCH ×2 (08:13→20:14)
[2017-08-29] MEDS: lactobacillus rhamnosus 10,000 MMU CELLS/CAPSULE PO SCH ×2 (08:13→20:14)
[2017-08-29] MEDS: multivitamins, therapeutics tablet PO SCH (08:13)
[2017-08-29] MEDS: atorvastatin 10mg tablet PO SCH (08:13)
[2017-08-29] MEDS: pantoprazole 40mg Tablet.DR PO SCH (08:14)
[2017-08-29] MEDS: clopidogrel 75mg tablet PO SCH (08:14)
[2017-08-29] MEDS: aspirin 81mg tablet.DR PO SCH (08:14)
[2017-08-29] MEDS: carVEDilol 3.125mg tablet PO SCH ×2 (08:14→20:14)
[2017-08-29] MEDS: digoxin 125mcg (0.125mg) tablet PO SCH (08:14)
[2017-08-29] MEDS: DABIGATRAN 150 MG PO SCH (08:15)
[2017-08-29] MEDS: gabapentin 300mg capsule PO SCH (08:15)
[2017-08-29] MEDS: insulin Lispro (HumaLOG) vial - multi-dose SQ SCH ×4 (09:27→21:38)
[2017-08-29] MEDS ORDERED: sodium phosphate inj. 30 MMOL in dextrose 5%-water 250 ML IV PRN (10:35)
[2017-08-29] MEDS ORDERED: sodium phosphate inj. 15 MMOL in dextrose 5%-water 150 ML IV PRN (10:35)
[2017-08-29] MEDS ORDERED: Neutra Phos packet PO PRN (10:35)
[2017-08-29] MEDS: tamsulosin 0.4mg capsule PO SCH ×3 (10:35→21:00)
[2017-08-29 10:37] LABS: OCCULT BLOOD STOOL POSITIVE (Neg)
[2017-08-29] MEDS ORDERED: epoetin 20,000 units/ml inj SQ ONE (10:40)
[2017-08-29] MEDS: furosemide 40mg tablet PO SCH ×2 (12:39→20:14)
[2017-08-29] MEDS: insulin glargine (Lantus) pen - multi-dose SQ SCH (18:35)
[2017-08-30] VITALS (24 sets, daily range): BP systolic 97–140; BP diastolic 52–76
[2017-08-30] MEDS: ipratropium/albuterol 3ml nebule NEB SCH ×6 (03:56→23:20)
[2017-08-30 05:24] LABS: BASOPHILS % (AUTO) 0.2 % (0-1); EOSINOPHILS # (AUTO) 0.2 X10'3 (0-0.9); EOSINOPHILS % (AUTO) 1.5 % (0-6); HEMATOCRIT 30.2 % (42.0-52.0); HEMOGLOBIN 9.9 g/dl (14.0-17.9); LYMPHOCYTES # (AUTO) 1.3 X10'3 (1.1-4.8); LYMPHOCYTES % (AUTO) 7.9 % (21-51); MEAN CORPUSCULAR HEMOGLOBIN 32.7 PG (27.0-31.0); MEAN CORPUSCULAR HGB CONC 32.9 % (33.0-36.5); MEAN CORPUSCULAR VOLUME 99.3 FL (78-98); MEAN PLATELET VOLUME 10.1 FL (7.4-10.4); MONOCYTES # (AUTO) 0.9 X10'3 (0-0.9); MONOCYTES % (AUTO) 5.8 % (2-12); NEUTROPHILS # (AUTO) 13.7 X10'3 (1.8-7.7); NEUTROPHILS % (AUTO) 84.6 % (42-75); PLATELET COUNT 166 X10'3 (140-440); RED BLOOD COUNT 3.04 X10'6 (4.70-6.10); RED CELL DISTRIBUTION WIDTH 18.5 % (11.5-14.5); WHITE BLOOD COUNT 16.2 X10'3 (4.5-11.0)
[2017-08-30 05:42] LABS: ALBUMIN 2.2 G/DL (3.4-5.0); ANION GAP 9 (8-16); BLOOD UREA NITROGEN 31 MG/DL (7-18); BUN/CREATININE RATIO 28.4 (5.4-32.0); CALCIUM 9.1 MG/DL (8.5-10.1); CHLORIDE 104 MMOL/L (99-107); CREATININE 1.09 MG/DL (0.60-1.10); GLUCOSE 71 MG/DL (70-104); MAGNESIUM 1.4 MG/DL (1.5-2.4); PHOSPHORUS 3.5 MG/DL (2.3-4.5); POTASSIUM 3.7 MMOL/L (3.5-5.1); PREALBUMIN 16.8 MG/DL (19-36); SODIUM 141 MMOL/L (135-145); TOTAL CARBON DIOXIDE 28.5 MMOL/L (24-32); eGFR 66 ML/MIN
[2017-08-30] MEDS: docusate sodium 100mg/10ml UD cup PO SCH ×2 (08:00→20:00)
[2017-08-30] MEDS: aspirin 81mg tablet.DR PO SCH (08:00)
[2017-08-30] MEDS: lactobacillus rhamnosus 10,000 MMU CELLS/CAPSULE PO SCH ×2 (09:14→20:25)
[2017-08-30] MEDS: clopidogrel 75mg tablet PO SCH (09:14)
[2017-08-30] MEDS: furosemide 40mg tablet PO SCH ×3 (09:14→20:25)
[2017-08-30] MEDS: atorvastatin 10mg tablet PO SCH (09:15)
[2017-08-30] MEDS: lisinopril 5mg tablet PO SCH (09:15)
[2017-08-30] MEDS: digoxin 125mcg (0.125mg) tablet PO SCH (09:15)
[2017-08-30] MEDS: amiodarone 200mg tablet PO SCH ×2 (09:16→20:25)
[2017-08-30] MEDS: potassium Cl 20 mEq SR tablet PO SCH ×3 (09:16→20:25)
[2017-08-30] MEDS: pantoprazole 40mg Tablet.DR PO SCH (09:16)
[2017-08-30] MEDS: gabapentin 300mg capsule PO SCH (09:17)
[2017-08-30] MEDS: thiamine 100mg tablet PO SCH (09:17)
[2017-08-30] MEDS: multivitamins, therapeutics tablet PO SCH (09:17)
[2017-08-30] MEDS: NUT.TX.GLUC.INTOLER,LAC-FR,REG (BOOST GLUCOSE CONTROL) 237 ML PO SCH ×3 (09:18→18:00)
[2017-08-30] MEDS: folic acid 1mg tablet PO SCH (09:18)
[2017-08-30] MEDS: carVEDilol 3.125mg tablet PO SCH ×2 (09:18→20:25)
[2017-08-30] MEDS: insulin Lispro (HumaLOG) vial - multi-dose SQ SCH ×3 (09:34→20:23)
[2017-08-30] MEDS ORDERED: potassium Cl 20 mEq SR tablet PO PRN ×2 (12:10)
[2017-08-30] MEDS: levoFLOXACIN 250mg tablet PO SCH (13:52)
[2017-08-30] MEDS: K and/or MAG REPLACEMENT MC SCH (15:00)
[2017-08-30] MEDS: magnesium Cl slow-release 64mg tablet PO PRN (18:08)
[2017-08-30] MEDS: insulin glargine (Lantus) pen - multi-dose SQ SCH (20:22)
[2017-08-30] MEDS: spironolactone 25 MG tablet PO SCH (20:25)
[2017-08-31] VITALS (22 sets, daily range): BP systolic 81–145; BP diastolic 43–65
[2017-08-31] MEDS: ipratropium/albuterol 3ml nebule NEB SCH ×6 (03:12→23:52)
[2017-08-31 05:23] LABS: BASOPHILS % (AUTO) 0 % (0-1); EOSINOPHILS # (AUTO) 0.7 X10'3 (0-0.9); EOSINOPHILS % (AUTO) 3.8 % (0-6); HEMATOCRIT 29.4 % (42.0-52.0); HEMOGLOBIN 9.6 g/dl (14.0-17.9); LYMPHOCYTES # (AUTO) 1.4 X10'3 (1.1-4.8); LYMPHOCYTES % (AUTO) 7.3 % (21-51); MEAN CORPUSCULAR HEMOGLOBIN 32.6 PG (27.0-31.0); MEAN CORPUSCULAR HGB CONC 32.8 % (33.0-36.5); MEAN CORPUSCULAR VOLUME 99.4 FL (78-98); MONOCYTES # (AUTO) 1.3 X10'3 (0-0.9); MONOCYTES % (AUTO) 6.6 % (2-12); NEUTROPHILS # (AUTO) 15.6 X10'3 (1.8-7.7); NEUTROPHILS % (AUTO) 82.3 % (42-75); PLATELET COUNT 185 X10'3 (140-440); RED BLOOD COUNT 2.96 X10'6 (4.70-6.10); RED CELL DISTRIBUTION WIDTH 18.1 % (11.5-14.5)
[2017-08-31 05:45] LABS: ANION GAP 6 (8-16); BLOOD UREA NITROGEN 29 MG/DL (7-18); BUN/CREATININE RATIO 23.6 (5.4-32.0); CALCIUM 8.9 MG/DL (8.5-10.1); CHLORIDE 100 MMOL/L (99-107); CREATININE 1.23 MG/DL (0.60-1.10); GLUCOSE 127 MG/DL (70-104); MAGNESIUM 1.1 MG/DL (1.5-2.4); POTASSIUM 3.7 MMOL/L (3.5-5.1); SODIUM 138 MMOL/L (135-145); eGFR 58 ML/MIN
[2017-08-31] MEDS: magnesium Cl slow-release 64mg tablet PO PRN (05:56)
[2017-08-31] MEDS: pantoprazole 40mg Tablet.DR PO SCH (07:30)
[2017-08-31] MEDS: NUT.TX.GLUC.INTOLER,LAC-FR,REG (BOOST GLUCOSE CONTROL) 237 ML PO SCH ×3 (08:00→18:00)
[2017-08-31] MEDS: K and/or MAG REPLACEMENT MC SCH (08:00)
[2017-08-31] MEDS: docusate sodium 100mg/10ml UD cup PO SCH ×2 (08:00→20:12)
[2017-08-31] MEDS: gabapentin 300mg capsule PO SCH (08:52)
[2017-08-31] MEDS: aspirin 81mg tablet.DR PO SCH (08:52)
[2017-08-31] MEDS: furosemide 40mg tablet PO SCH ×3 (08:52→20:12)
[2017-08-31] MEDS: carVEDilol 3.125mg tablet PO SCH ×2 (08:52→20:00)
[2017-08-31] MEDS: thiamine 100mg tablet PO SCH (08:53)
[2017-08-31] MEDS: folic acid 1mg tablet PO SCH (08:53)
[2017-08-31] MEDS: potassium Cl 20 mEq SR tablet PO SCH ×3 (08:53→20:12)
[2017-08-31] MEDS: spironolactone 25 MG tablet PO SCH ×2 (08:53→20:00)
[2017-08-31] MEDS: atorvastatin 10mg tablet PO SCH (08:53)
[2017-08-31] MEDS: multivitamins, therapeutics tablet PO SCH (08:53)
[2017-08-31] MEDS: amiodarone 200mg tablet PO SCH ×2 (08:53→20:12)
[2017-08-31] MEDS: clopidogrel 75mg tablet PO SCH (08:54)
[2017-08-31] MEDS: lactobacillus rhamnosus 10,000 MMU CELLS/CAPSULE PO SCH ×2 (08:54→20:12)
[2017-08-31] MEDS: digoxin 125mcg (0.125mg) tablet PO SCH (08:54)
[2017-08-31] MEDS: lisinopril 5mg tablet PO SCH (08:54)
[2017-08-31] MEDS: insulin Lispro (HumaLOG) vial - multi-dose SQ SCH ×2 (09:40→19:22)
[2017-08-31] MEDS: levoFLOXACIN 250mg tablet PO SCH (11:59)
[2017-08-31] MEDS: insulin glargine (Lantus) pen - multi-dose SQ SCH (22:44)
[2017-09-01] VITALS (17 sets, daily range): BP systolic 81–140; BP diastolic 39–63
[2017-09-01] MEDS: ipratropium/albuterol 3ml nebule NEB SCH ×4 (03:59→20:16)
[2017-09-01 06:24] LABS: MAGNESIUM 1.2 MG/DL (1.5-2.4); POTASSIUM 4.1 MMOL/L (3.5-5.1)
[2017-09-01] MEDS: K and/or MAG REPLACEMENT MC SCH (07:33)
[2017-09-01] MEDS: spironolactone 25 MG tablet PO SCH ×2 (07:35→20:29)
[2017-09-01] MEDS: carVEDilol 3.125mg tablet PO SCH ×2 (07:36→20:29)
[2017-09-01] MEDS: furosemide 40mg tablet PO SCH ×3 (07:37→20:29)
[2017-09-01] MEDS: lisinopril 5mg tablet PO SCH (07:38)
[2017-09-01] MEDS: multivitamins, therapeutics tablet PO SCH (07:45)
[2017-09-01] MEDS: aspirin 81mg tablet.DR PO SCH (07:45)
[2017-09-01] MEDS: docusate sodium 100mg/10ml UD cup PO SCH ×2 (07:45→20:30)
[2017-09-01] MEDS: magnesium Cl slow-release 64mg tablet PO PRN (07:45)
[2017-09-01] MEDS: thiamine 100mg tablet PO SCH (07:46)
[2017-09-01] MEDS: folic acid 1mg tablet PO SCH (07:46)
[2017-09-01] MEDS: pantoprazole 40mg Tablet.DR PO SCH (07:46)
[2017-09-01] MEDS: clopidogrel 75mg tablet PO SCH (07:46)
[2017-09-01] MEDS: digoxin 125mcg (0.125mg) tablet PO SCH (07:46)
[2017-09-01] MEDS: potassium Cl 20 mEq SR tablet PO SCH ×3 (07:47→20:29)
[2017-09-01] MEDS: lactobacillus rhamnosus 10,000 MMU CELLS/CAPSULE PO SCH ×2 (07:47→20:29)
[2017-09-01] MEDS: gabapentin 300mg capsule PO SCH (07:47)
[2017-09-01] MEDS: atorvastatin 10mg tablet PO SCH (07:47)
[2017-09-01] MEDS: amiodarone 200mg tablet PO SCH ×2 (07:47→20:29)
[2017-09-01] MEDS: NUT.TX.GLUC.INTOLER,LAC-FR,REG (BOOST GLUCOSE CONTROL) 237 ML PO SCH ×3 (08:00→18:00)
[2017-09-01] MEDS: insulin Lispro (HumaLOG) vial - multi-dose SQ SCH ×2 (09:29→19:22)
[2017-09-01] MEDS: levoFLOXACIN 250mg tablet PO SCH (11:56)
[2017-09-01] MEDS: insulin glargine (Lantus) pen - multi-dose SQ SCH (21:11)
[2017-09-02 02:00] VITALS: BP 133/63
[2017-09-02 06:00] VITALS: BP 116/65
[2017-09-02 06:26] LABS: MAGNESIUM 1.3 MG/DL (1.5-2.4); PREALBUMIN 10.7 MG/DL (19-36)
[2017-09-02] MEDS: folic acid 1mg tablet PO SCH (07:01)
[2017-09-02] MEDS: magnesium Cl slow-release 64mg tablet PO PRN ×2 (07:01→21:37)
[2017-09-02] MEDS: thiamine 100mg tablet PO SCH (07:02)
[2017-09-02] MEDS: multivitamins, therapeutics tablet PO SCH (07:02)
[2017-09-02] MEDS: lactobacillus rhamnosus 10,000 MMU CELLS/CAPSULE PO SCH ×2 (07:04→19:44)
[2017-09-02] MEDS: docusate sodium 100mg/10ml UD cup PO SCH ×2 (07:05→19:53)
[2017-09-02] MEDS: pantoprazole 40mg Tablet.DR PO SCH (07:05)
[2017-09-02] MEDS: gabapentin 300mg capsule PO SCH (07:05)
[2017-09-02] MEDS: clopidogrel 75mg tablet PO SCH (07:06)
[2017-09-02] MEDS: amiodarone 200mg tablet PO SCH ×2 (07:09→19:43)
[2017-09-02] MEDS: furosemide 40mg tablet PO SCH ×3 (07:11→21:37)
[2017-09-02] MEDS: carVEDilol 3.125mg tablet PO SCH ×2 (07:11→19:46)
[2017-09-02] MEDS: spironolactone 25 MG tablet PO SCH ×2 (07:11→19:42)
[2017-09-02] MEDS: digoxin 125mcg (0.125mg) tablet PO SCH (07:11)
[2017-09-02] MEDS: aspirin 81mg tablet.DR PO SCH (07:16)
[2017-09-02] MEDS: atorvastatin 10mg tablet PO SCH (07:16)
[2017-09-02] MEDS: potassium Cl 20 mEq SR tablet PO SCH ×3 (07:16→21:37)
[2017-09-02] MEDS: lisinopril 5mg tablet PO SCH (07:18)
[2017-09-02] MEDS: K and/or MAG REPLACEMENT MC SCH (08:00)
[2017-09-02] MEDS: NUT.TX.GLUC.INTOLER,LAC-FR,REG (BOOST GLUCOSE CONTROL) 237 ML PO SCH ×3 (08:00→18:00)
[2017-09-02] MEDS: ipratropium/albuterol 3ml nebule NEB SCH ×3 (08:25→21:56)
[2017-09-02] MEDS: insulin Lispro (HumaLOG) vial - multi-dose SQ SCH ×4 (09:08→21:44)
[2017-09-02 11:00] VITALS: BP 104/45
[2017-09-02] MEDS: levoFLOXACIN 250mg tablet PO SCH (11:41)
[2017-09-02 13:33] LABS: BASOPHILS % (AUTO) 0 % (0-1); EOSINOPHILS # (AUTO) 0.4 X10'3 (0-0.9); EOSINOPHILS % (AUTO) 2.5 % (0-6); HEMATOCRIT 29.8 % (42.0-52.0); HEMOGLOBIN 9.7 g/dl (14.0-17.9); LYMPHOCYTES # (AUTO) 0.9 X10'3 (1.1-4.8); LYMPHOCYTES % (AUTO) 5.7 % (21-51); MEAN CORPUSCULAR HEMOGLOBIN 32.7 PG (27.0-31.0); MEAN CORPUSCULAR HGB CONC 32.7 % (33.0-36.5); MEAN PLATELET VOLUME 9.3 FL (7.4-10.4); MONOCYTES % (AUTO) 5.8 % (2-12); NEUTROPHILS # (AUTO) 14.4 X10'3 (1.8-7.7); PLATELET COUNT 289 X10'3 (140-440); RED BLOOD COUNT 2.98 X10'6 (4.70-6.10); RED CELL DISTRIBUTION WIDTH 17.6 % (11.5-14.5); WHITE BLOOD COUNT 16.7 X10'3 (4.5-11.0)
[2017-09-02 13:45] LABS: ANION GAP 9 (8-16); BLOOD UREA NITROGEN 30 MG/DL (7-18); CALCIUM 9.1 MG/DL (8.5-10.1); CHLORIDE 98 MMOL/L (99-107); GLUCOSE 192 MG/DL (70-104); POTASSIUM 3.8 MMOL/L (3.5-5.1); SODIUM 137 MMOL/L (135-145); eGFR 59 ML/MIN
[2017-09-02 15:00] VITALS: BP 145/53
[2017-09-02 19:00] VITALS: BP 107/55
[2017-09-02] MEDS: DABIGATRAN 150 MG PO SCH (19:45)
[2017-09-02] MEDS: insulin glargine (Lantus) pen - multi-dose SQ SCH (21:46)
[2017-09-02 23:00] VITALS: BP 123/56
[2017-09-03 03:00] VITALS: BP 124/60
[2017-09-03] MEDS: ipratropium/albuterol 3ml nebule NEB SCH ×3 (04:09→14:25)
[2017-09-03 05:46] LABS: BASOPHILS % (AUTO) 0 % (0-1); EOSINOPHILS # (AUTO) 0.6 X10'3 (0-0.9); HEMATOCRIT 30.3 % (42.0-52.0); HEMOGLOBIN 10.1 g/dl (14.0-17.9); LYMPHOCYTES # (AUTO) 1.2 X10'3 (1.1-4.8); LYMPHOCYTES % (AUTO) 5.9 % (21-51); MEAN CORPUSCULAR HEMOGLOBIN 32.9 PG (27.0-31.0); MEAN CORPUSCULAR HGB CONC 33.2 % (33.0-36.5); MEAN PLATELET VOLUME 9.4 FL (7.4-10.4); MONOCYTES # (AUTO) 1.1 X10'3 (0-0.9); MONOCYTES % (AUTO) 5.6 % (2-12); NEUTROPHILS # (AUTO) 16.8 X10'3 (1.8-7.7); NEUTROPHILS % (AUTO) 85.5 % (42-75); PLATELET COUNT 317 X10'3 (140-440); RED BLOOD COUNT 3.06 X10'6 (4.70-6.10); RED CELL DISTRIBUTION WIDTH 17.7 % (11.5-14.5); WHITE BLOOD COUNT 19.6 X10'3 (4.5-11.0)
[2017-09-03 05:57] LABS: ALBUMIN 2.1 G/DL (3.4-5.0); ANION GAP 12 (8-16); BLOOD UREA NITROGEN 28 MG/DL (7-18); BUN/CREATININE RATIO 23.9 (5.4-32.0); CALCIUM 9.3 MG/DL (8.5-10.1); CHLORIDE 98 MMOL/L (99-107); CREATININE 1.17 MG/DL (0.60-1.10); GLUCOSE 166 MG/DL (70-104); MAGNESIUM 1.4 MG/DL (1.5-2.4); SODIUM 137 MMOL/L (135-145); TOTAL CARBON DIOXIDE 27.5 MMOL/L (24-32); eGFR 61 ML/MIN
[2017-09-03 06:00] VITALS: BP 126/69
[2017-09-03 06:07] LABS: CLARITY,URINE CLEAR (Clear); COLOR,URINE YELLOW (Yellow); GLUCOSE, URINE NEGATIVE (Neg); KETONES,URINE NEGATIVE (Neg); LEUKOCYTE ESTERASE ,URINE NEGATIVE (Neg); NITRITES, URINE NEGATIVE (Neg); OCCULT BLOOD,URINE TRACE-INTACT (Neg); PH,URINE 5.5 (4.8-8.0); PROTEIN,URINE NEGATIVE (Neg); UROBILINOGEN,URINE 0.2 E.U/dL (0.2-1.0)
[2017-09-03 06:10] LABS: UA COLLECTION TYPE STRAIGHT CATH
[2017-09-03 06:20] LABS: MUCUS STRANDS NONE SEEN /LPF (Neg); SQUAMOUS EPITHELIAL CELL,UR FEW /LPF (FEW)
[2017-09-03 06:23] LABS: BACTERIA,URINE FEW /HPF (Neg); RBC,URINE 0-2 /HPF (0-2); WBC,URINE 0-4 /HPF (0-4)
[2017-09-03] MEDS: docusate sodium 100mg/10ml UD cup PO SCH (07:55)
[2017-09-03] MEDS: multivitamins, therapeutics tablet PO SCH (08:11)
[2017-09-03] MEDS: lactobacillus rhamnosus 10,000 MMU CELLS/CAPSULE PO SCH (08:12)
[2017-09-03] MEDS: atorvastatin 10mg tablet PO SCH (08:12)
[2017-09-03] MEDS: folic acid 1mg tablet PO SCH (08:12)
[2017-09-03] MEDS: aspirin 81mg tablet.DR PO SCH (08:12)
[2017-09-03] MEDS: lisinopril 5mg tablet PO SCH (08:12)
[2017-09-03] MEDS: spironolactone 25 MG tablet PO SCH (08:12)
[2017-09-03] MEDS: carVEDilol 3.125mg tablet PO SCH (08:13)
[2017-09-03] MEDS: amiodarone 200mg tablet PO SCH (08:13)
[2017-09-03] MEDS: magnesium Cl slow-release 64mg tablet PO PRN (08:13)
[2017-09-03] MEDS: digoxin 125mcg (0.125mg) tablet PO SCH (08:13)
[2017-09-03] MEDS: clopidogrel 75mg tablet PO SCH (08:13)
[2017-09-03] MEDS: thiamine 100mg tablet PO SCH (08:13)
[2017-09-03] MEDS: gabapentin 300mg capsule PO SCH (08:14)
[2017-09-03] MEDS: furosemide 40mg tablet PO SCH ×2 (08:14→13:05)
[2017-09-03] MEDS: DABIGATRAN 150 MG PO SCH (08:14)
[2017-09-03] MEDS: potassium Cl 20 mEq SR tablet PO SCH ×2 (08:14→13:05)
[2017-09-03] MEDS: NUT.TX.GLUC.INTOLER,LAC-FR,REG (BOOST GLUCOSE CONTROL) 237 ML PO SCH ×2 (08:14→13:00)
[2017-09-03] MEDS: pantoprazole 40mg Tablet.DR PO SCH (08:21)
[2017-09-03] MEDS: insulin Lispro (HumaLOG) vial - multi-dose SQ SCH ×2 (08:46→13:08)
[2017-09-03 11:00] VITALS: BP 109/62
[2017-09-03 11:00] LABS: BASOPHILS % (AUTO) 0.2 % (0-1); EOSINOPHILS % (AUTO) 2.3 % (0-6); HEMATOCRIT 30.5 % (42.0-52.0); HEMOGLOBIN 10.1 g/dl (14.0-17.9); LYMPHOCYTES # (AUTO) 1.1 X10'3 (1.1-4.8); LYMPHOCYTES % (AUTO) 6.2 % (21-51); MEAN CORPUSCULAR HEMOGLOBIN 32.6 PG (27.0-31.0); MEAN CORPUSCULAR VOLUME 98.7 FL (78-98); MEAN PLATELET VOLUME 8.9 FL (7.4-10.4); NEUTROPHILS # (AUTO) 15.4 X10'3 (1.8-7.7); NEUTROPHILS % (AUTO) 85.3 % (42-75); PLATELET COUNT 308 X10'3 (140-440); RED BLOOD COUNT 3.08 X10'6 (4.70-6.10); RED CELL DISTRIBUTION WIDTH 17.7 % (11.5-14.5)
[2017-09-03 11:01] LABS: EOSINOPHILS # (AUTO) 0.4 X10'3 (0-0.9); MONOCYTES # (AUTO) 1.1 X10'3 (0-0.9)
[2017-09-03] MEDS: levoFLOXACIN 250mg tablet PO SCH (11:54)
[2017-09-03] MEDS ORDERED: tamsulosin 0.4mg capsule PO SCH (21:00)
[2017-09-04] MEDS ORDERED: ipratropium/albuterol 3ml nebule NEB SCH (21:00)
== END 2017-09-03 15:20 | DRG 246 ==
LOC: ER 01:50 → ED HOLD 02:26 → PCU 3S 04:13 → ICU 2S 08-24 09:55 → PCU 3S 09-01 13:25
PROVIDERS: ADMIT Family Medicine; ATTEND Internal Medicine
PROC: 5A09357 Assistance with Respiratory Ventilation, Less than 24 Consecutive Hours, Continuous Positive Airway Pressure (ICD-10-PCS; 2017-08-23)
PROC: 5A1955Z Respiratory Ventilation, Greater than 96 Consecutive Hours (ICD-10-PCS; 2017-08-24)
PROC: 02HV33Z Insertion of Infusion Device into Superior Vena Cava, Percutaneous Approach (ICD-10-PCS; 2017-08-24)
PROC: 0BH18EZ Insertion of Endotracheal Airway into Trachea, Via Natural or Artificial Opening Endoscopic (ICD-10-PCS; 2017-08-24)
PROC: 027034Z Dilation of Coronary Artery, One Artery with Drug-eluting Intraluminal Device, Percutaneous Approach (ICD-10-PCS; principal; 2017-08-25)
PROC: 4A023N7 Measurement of Cardiac Sampling and Pressure, Left Heart, Percutaneous Approach (ICD-10-PCS; 2017-08-25)
PROC: B2151ZZ Fluoroscopy of Left Heart using Low Osmolar Contrast (ICD-10-PCS; 2017-08-25)
PROC: B2131ZZ Fluoroscopy of Multiple Coronary Artery Bypass Grafts using Low Osmolar Contrast (ICD-10-PCS; 2017-08-25)
PROC: B2111ZZ Fluoroscopy of Multiple Coronary Arteries using Low Osmolar Contrast (ICD-10-PCS; 2017-08-25)
PROC: 30233N1 Transfusion of Nonautologous Red Blood Cells into Peripheral Vein, Percutaneous Approach (ICD-10-PCS; 2017-08-28)
DX: I21.4 Non-ST elevation (NSTEMI) myocardial infarction (principal); J18.1 Lobar pneumonia, unspecified organism; J96.01 Acute respiratory failure with hypoxia; I50.43 Acute on chronic combined systolic (congestive) and diastolic (congestive) heart failure; I47.2 Ventricular tachycardia; N17.9 Acute kidney failure, unspecified; E11.42 Type 2 diabetes mellitus with diabetic polyneuropathy; I11.0 Hypertensive heart disease with heart failure; E83.42 Hypomagnesemia; I08.1 Rheumatic disorders of both mitral and tricuspid valves; E11.51 Type 2 diabetes mellitus with diabetic peripheral angiopathy without gangrene; I48.2 Chronic atrial fibrillation; E78.5 Hyperlipidemia, unspecified; R19.5 Other fecal abnormalities; R33.8 Other retention of urine; N40.1 Benign prostatic hyperplasia with lower urinary tract symptoms; D64.9 Anemia, unspecified; I25.10 Atherosclerotic heart disease of native coronary artery without angina pectoris; F10.10 Alcohol abuse, uncomplicated; I25.2 Old myocardial infarction; Z95.1 Presence of aortocoronary bypass graft; Z91.19 Patient's noncompliance with other medical treatment and regimen; Z95.5 Presence of coronary angioplasty implant and graft; Z79.4 Long term (current) use of insulin; Z79.01 Long term (current) use of anticoagulants; Z79.82 Long term (current) use of aspirin; Z79.899 Other long term (current) drug therapy; Z79.84 Long term (current) use of oral hypoglycemic drugs; Z86.79 Personal history of other diseases of the circulatory system; Z87.891 Personal history of nicotine dependence
CPT/HCPCS: 93306; 93458; 96374; 99285; C9604; 36415; 36600; 71010; 80048; 80053; 80061; 80162; 81001; 82272; 82803; 82948; 83036; 83605; 83690; 83735; 83880; 84100; 84132; 84134; 84443; 84484; 85018; 85025; 85379; 85610; 85730; 86885; 86900; 86901; 86920; 87040; 87070; 93005; 93308; 94002; 94003; 94640; 94660; 94667; 94668; 94760; 97110; 97116; 97162; 97530; A4315; A4353; A6213; A6257; A6258; A6449; A7015; C1725; C1751; C1758; C1769; C1874; C1894; J0282; J0692; J0696; J0780; J0885; J1160; J1250; J1644; J1815; J1940; J1956; J2001; J2250; J2270; J2405; J2920; J3246; J3475; J3480; J3490; J7030; J7060; P9016; Q9967

== ENCOUNTER 2017-09-10 00:50 | Emergency (ER) | payer MEDICARE, OTHER ==
[~2017-09-10] VITALS: Ht 175.3 cm; Wt 90.9 kg
[2017-09-10 01:15] LABS: CLARITY,URINE CLOUDY (Clear); GLUCOSE, URINE NEGATIVE (Neg); KETONES,URINE NEGATIVE (Neg); LEUKOCYTE ESTERASE ,URINE TRACE (Neg); OCCULT BLOOD,URINE LARGE (Neg); PH,URINE 6.5 (4.8-8.0); PROTEIN,URINE 30 mg/dl (Neg); UROBILINOGEN,URINE 0.2 E.U/dL (0.2-1.0)
[2017-09-10 01:25] LABS: COLOR,URINE DARK YELLOW (Yellow); UA COLLECTION TYPE FOLEY CATH
[2017-09-10 01:26] LABS: NITRITES, URINE NEGATIVE (Neg)
[2017-09-10 01:27] LABS: BACTERIA,URINE FEW /HPF (Neg); RBC,URINE TNTC /HPF (0-2); SQUAMOUS EPITHELIAL CELL,UR FEW /LPF (FEW)
[2017-09-10] MEDS ORDERED: CIPR-230 PO (01:40)
[2017-09-10] MEDS ORDERED: ciprofloxacin 250mg tablet PO ONE (01:40)
[2017-09-10 02:32] VITALS: BP 116/52
== END 2017-09-10 02:33 | disposition home or self-care (01) ==
LOC: ER 00:51
DX: R31.9 Hematuria, unspecified (principal); R42 Dizziness and giddiness; I10 Essential (primary) hypertension; I48.91 Unspecified atrial fibrillation; I25.10 Atherosclerotic heart disease of native coronary artery without angina pectoris; E11.9 Type 2 diabetes mellitus without complications; Z95.1 Presence of aortocoronary bypass graft; Z79.899 Other long term (current) drug therapy
CPT/HCPCS: 81001; 87077; 87088; 87186; 99284

== ENCOUNTER 2017-09-21 09:35 | Inpatient (IN) | payer MEDICARE, OTHER ==
[~2017-09-21] VITALS: Ht 175.3 cm; Wt 85.6 kg
[2017-09-21] VITALS (10 sets, daily range): BP systolic 93–134; BP diastolic 49–72
[~2017-09-21 09:35] MED LIST changes: +CIPR-230 PO
[2017-09-21 10:14] LABS: BASOPHILS # (AUTO) 0.1 X10'3 (0-0.2); BASOPHILS % (AUTO) 0.3 % (0-1); EOSINOPHILS # (AUTO) 0.3 X10'3 (0-0.9); EOSINOPHILS % (AUTO) 1.8 % (0-6); HEMATOCRIT 32.1 % (42.0-52.0); HEMOGLOBIN 10.5 g/dl (14.0-17.9); LYMPHOCYTES # (AUTO) 1.8 X10'3 (1.1-4.8); LYMPHOCYTES % (AUTO) 9.2 % (21-51); MEAN CORPUSCULAR HEMOGLOBIN 30.9 PG (27.0-31.0); MEAN CORPUSCULAR HGB CONC 32.7 % (33.0-36.5); MEAN CORPUSCULAR VOLUME 94.5 FL (78-98); MEAN PLATELET VOLUME 9.9 FL (7.4-10.4); MONOCYTES # (AUTO) 1.3 X10'3 (0-0.9); MONOCYTES % (AUTO) 6.9 % (2-12); NEUTROPHILS # (AUTO) 15.6 X10'3 (1.8-7.7); NEUTROPHILS % (AUTO) 81.8 % (42-75); PLATELET COUNT 297 X10'3 (140-440); RED CELL DISTRIBUTION WIDTH 18.1 % (11.5-14.5); WHITE BLOOD COUNT 19.1 X10'3 (4.5-11.0)
[2017-09-21 10:28] LABS: PROTHROMBIN TIME 43.3 SECONDS (9.0-12.0)
[2017-09-21 10:30] LABS: ANISOCYTOSIS 2+; PLATELET ESTIMATE NORMAL; POLYCHROMASIA FEW; SCHISTOCYTES FEW
[2017-09-21 10:33] LABS: BURR CELLS FEW
[2017-09-21 10:35] LABS: INR 4.4 INR
[2017-09-21 10:42] LABS: ALANINE AMINOTRANSFERASE 1208 U/L (12-78); ALBUMIN 2.4 G/DL (3.4-5.0); ALBUMIN/GLOBULIN RATIO 0.6 (1.1-1.5); ALKALINE PHOSPHATASE 219 IU/L (46-116); ANION GAP 14 (8-16); ASPARTATE AMINO TRANSFERASE 1278 U/L (10-37); BILIRUBIN,TOTAL 1.4 MG/DL (0.1-1.0); BLOOD UREA NITROGEN 61 MG/DL (7-18); BUN/CREATININE RATIO 15.8 (5.4-32.0); CALCIUM 8.3 MG/DL (8.5-10.1); CHLORIDE 87 MMOL/L (99-107); CREATININE 3.86 MG/DL (0.60-1.10); GLUCOSE 114 MG/DL (70-104); MAGNESIUM 1.8 MG/DL (1.5-2.4); POTASSIUM 5.2 MMOL/L (3.5-5.1); SODIUM 122 MMOL/L (135-145); TOTAL CARBON DIOXIDE 21.4 MMOL/L (24-32); TOTAL PROTEIN 6.3 G/DL (6.4-8.2); eGFR 15 ML/MIN
[2017-09-21 10:48] LABS: CLARITY,URINE CLOUDY (Clear); COLOR,URINE YELLOW (Yellow); GLUCOSE, URINE NEGATIVE (Neg); KETONES,URINE NEGATIVE (Neg); LEUKOCYTE ESTERASE ,URINE MODERATE (Neg); NITRITES, URINE NEGATIVE (Neg); OCCULT BLOOD,URINE MODERATE (Neg); PH,URINE 5.5 (4.8-8.0); PROTEIN,URINE NEGATIVE (Neg); UROBILINOGEN,URINE 0.2 E.U/dL (0.2-1.0)
[2017-09-21 10:50] LABS: UA COLLECTION TYPE STRAIGHT CATH
[2017-09-21 10:58] LABS: SQUAMOUS EPITHELIAL CELL,UR FEW /LPF (FEW)
[2017-09-21 10:59] LABS: BACTERIA,URINE 2+ /HPF (Neg); WBC CLUMPS,URINE MODERATE /HPF (NEGATIVE)
[2017-09-21 11:00] LABS: RBC,URINE 0-2 /HPF (0-2); WBC,URINE 50-100 /HPF (0-4)
[2017-09-21 11:01] LABS: MUCUS STRANDS FEW /LPF (Neg)
[2017-09-21] MEDS ORDERED: amiodarone 200mg tablet PO SCH (11:15)
[2017-09-21 11:41] LABS: PHOSPHORUS 6.1 MG/DL (2.3-4.5)
[2017-09-21] MEDS ORDERED: magnesium 4gm in 100ml NS 100 ML IV PRN (14:35)
[2017-09-21] MEDS ORDERED: sodium phosphate inj. 30 MMOL in dextrose 5%-water 250 ML IV PRN (14:35)
[2017-09-21] MEDS ORDERED: magnesium 2GM in 50ml NS 50 ML IV PRN (14:35)
[2017-09-21] MEDS ORDERED: sodium phosphate inj. 15 MMOL in dextrose 5%-water 150 ML IV PRN (14:35)
[2017-09-21] MEDS: K, MAG and/or Phos replacement - Verify level? MC SCH (14:35)
[2017-09-21] MEDS ORDERED: magnesium hydroxide 30ml (MOM) UD suspension PO PRN (14:35)
[2017-09-21] MEDS ORDERED: amiodarone 150mg/dext, iso-os 100 ML IV ONE (14:40)
[2017-09-21] MEDS ORDERED: heparin 10,000 units/1 ML INJ IV PRN (15:05)
[2017-09-21] MEDS ORDERED: heparin 10,000 units/1 ML INJ IV ONE (15:05)
[2017-09-21] MEDS: normal saline 1000ml 1,000 ML IV SCH (15:32)
[2017-09-21] MEDS: amiodarone/D5 450MG/250ML BAG 250 ML IV SCH ×2 (15:55→22:05)
[2017-09-21 16:12] LABS: BASOPHILS # (AUTO) 0.1 X10'3 (0-0.2); BASOPHILS % (AUTO) 0.8 % (0-1); EOSINOPHILS # (AUTO) 0.3 X10'3 (0-0.9); EOSINOPHILS % (AUTO) 2.1 % (0-6); HEMOGLOBIN 10.1 g/dl (14.0-17.9); LYMPHOCYTES # (AUTO) 1.2 X10'3 (1.1-4.8); LYMPHOCYTES % (AUTO) 7.9 % (21-51); MEAN CORPUSCULAR HEMOGLOBIN 30.9 PG (27.0-31.0); MEAN CORPUSCULAR HGB CONC 32.6 % (33.0-36.5); MEAN CORPUSCULAR VOLUME 94.8 FL (78-98); MEAN PLATELET VOLUME 9.9 FL (7.4-10.4); MONOCYTES # (AUTO) 0.7 X10'3 (0-0.9); MONOCYTES % (AUTO) 4.5 % (2-12); NEUTROPHILS % (AUTO) 84.7 % (42-75); PLATELET COUNT 227 X10'3 (140-440); RED BLOOD COUNT 3.27 X10'6 (4.70-6.10); RED CELL DISTRIBUTION WIDTH 18.4 % (11.5-14.5); WHITE BLOOD COUNT 15.4 X10'3 (4.5-11.0)
[2017-09-21] MEDS: levoFLOXACIN 250mg tablet PO SCH (16:29)
[2017-09-21] MEDS ORDERED: DOCU100C40 PO (17:14)
[2017-09-21] MEDS ORDERED: CARV3.12 PO (17:14)
[2017-09-21] MEDS ORDERED: INSU100I31 SQ (17:14)
[2017-09-21] MEDS ORDERED: NITR0.4T51 SL (17:14)
[2017-09-21] MEDS ORDERED: AMIO200T57 PO (17:14)
[2017-09-21] MEDS ORDERED: DULR RC (17:14)
[2017-09-21] MEDS ORDERED: MAGN400O6 PO (17:14)
[2017-09-21] MEDS ORDERED: FOLI0.4T2 PO (17:14)
[2017-09-21] MEDS ORDERED: ATOR10TA PO (17:14)
[2017-09-21] MEDS ORDERED: LACTC PO (17:31)
[2017-09-21] MEDS ORDERED: ASPI-1265 PO (17:34)
[2017-09-21] MEDS ORDERED: ALB0.5UD IH (17:34)
[2017-09-21] MEDS ORDERED: Folic Acid (17:40)
[2017-09-21] MEDS ORDERED: CLOP75TA15 PO (17:45)
[2017-09-21] MEDS ORDERED: FOLI1TAB16 PO (17:51)
[2017-09-21] MEDS ORDERED: ALBU2.5V13 NEB (18:01)
[2017-09-21] MEDS ORDERED: NITR50CA4 PO (18:03)
[2017-09-21] MEDS ORDERED: INSU100C4 SQ (18:21)
[2017-09-21] MEDS ORDERED: [UNRECOGNIZED DRUG - CODE] IV (18:24)
[2017-09-21 18:28] LABS: PROTHROMBIN TIME 58.8 SECONDS (9.0-12.0)
[2017-09-21 18:31] LABS: INR 6.1 INR
[2017-09-21 18:32] LABS: PARTIAL THROMBOPLASTIN TIME > 153 SECONDS (22-32)
[2017-09-21] MEDS ORDERED: THI100T PO (18:38)
[2017-09-21] MEDS: furosemide 40mg tablet PO SCH (20:10)
[2017-09-21] MEDS: tamsulosin 0.4mg capsule PO SCH (21:09)
[2017-09-22] VITALS (24 sets, daily range): BP systolic 64–124; BP diastolic 32–64
[2017-09-22] MEDS: normal saline 1000ml 1,000 ML IV SCH ×2 (01:00→11:35)
[2017-09-22 05:39] LABS: BASOPHILS # (AUTO) 0.1 X10'3 (0-0.2); BASOPHILS % (AUTO) 0.4 % (0-1); EOSINOPHILS # (AUTO) 0.4 X10'3 (0-0.9); EOSINOPHILS % (AUTO) 2.9 % (0-6); HEMATOCRIT 30.8 % (42.0-52.0); HEMOGLOBIN 10.1 g/dl (14.0-17.9); LYMPHOCYTES # (AUTO) 0.7 X10'3 (1.1-4.8); LYMPHOCYTES % (AUTO) 5.4 % (21-51); MEAN CORPUSCULAR HEMOGLOBIN 30.6 PG (27.0-31.0); MEAN CORPUSCULAR HGB CONC 32.6 % (33.0-36.5); MEAN CORPUSCULAR VOLUME 93.9 FL (78-98); MEAN PLATELET VOLUME 9.8 FL (7.4-10.4); MONOCYTES # (AUTO) 0.8 X10'3 (0-0.9); MONOCYTES % (AUTO) 6.2 % (2-12); NEUTROPHILS # (AUTO) 10.8 X10'3 (1.8-7.7); NEUTROPHILS % (AUTO) 85.1 % (42-75); PLATELET COUNT 210 X10'3 (140-440); RED BLOOD COUNT 3.28 X10'6 (4.70-6.10); RED CELL DISTRIBUTION WIDTH 17.7 % (11.5-14.5); WHITE BLOOD COUNT 12.7 X10'3 (4.5-11.0)
[2017-09-22 05:53] LABS: INR 2.2 INR; PARTIAL THROMBOPLASTIN TIME 53 SECONDS (22-32); PROTHROMBIN TIME 22.5 SECONDS (9.0-12.0)
[2017-09-22 06:16] LABS: ALANINE AMINOTRANSFERASE 828 U/L (12-78); ALBUMIN 2.2 G/DL (3.4-5.0); ALBUMIN/GLOBULIN RATIO 0.6 (1.1-1.5); ALKALINE PHOSPHATASE 192 IU/L (46-116); ANION GAP 10 (8-16); ASPARTATE AMINO TRANSFERASE 541 U/L (10-37); BILIRUBIN,TOTAL 1.1 MG/DL (0.1-1.0); BLOOD UREA NITROGEN 57 MG/DL (7-18); BUN/CREATININE RATIO 24.7 (5.4-32.0); CALCIUM 7.8 MG/DL (8.5-10.1); CHLORIDE 92 MMOL/L (99-107); CREATININE 2.31 MG/DL (0.60-1.10); GLUCOSE 143 MG/DL (70-104); MAGNESIUM 1.5 MG/DL (1.5-2.4); POTASSIUM 3.6 MMOL/L (3.5-5.1); SODIUM 127 MMOL/L (135-145); TOTAL PROTEIN 5.7 G/DL (6.4-8.2); eGFR 28 ML/MIN
[2017-09-22] MEDS: K, MAG and/or Phos replacement - Verify level? MC SCH (06:51)
[2017-09-22 06:59] LABS: TROPONIN I 0.21 NG/ML (0.0-0.05)
[2017-09-22] MEDS ORDERED: diltiazem CD 180mg cap (once-daily) PO SCH (08:00)
[2017-09-22] MEDS ORDERED: carVEDilol 3.125mg tablet PO SCH (08:00)
[2017-09-22] MEDS ORDERED: HYDROchlorothiazide 25mg tablet PO SCH (08:00)
[2017-09-22] MEDS ORDERED: lisinopril 5mg tablet PO SCH (08:00)
[2017-09-22] MEDS: pantoprazole 40mg Tablet.DR PO SCH (08:30)
[2017-09-22] MEDS: vitamin D (cholecalciferol) 1,000 unit tablet PO SCH (08:32)
[2017-09-22] MEDS: furosemide 40mg tablet PO SCH ×2 (08:32→20:00)
[2017-09-22] MEDS: glipizide 5mg tablet PO SCH (11:35)
[2017-09-22] MEDS: levoFLOXACIN 250mg tablet PO SCH (11:41)
[2017-09-22] MEDS: amiodarone/D5 450MG/250ML BAG 250 ML IV SCH (13:50)
[2017-09-22] MEDS ORDERED: DOPamine 400mg/D5W 250ml 250 ML IV SCH ×2 (15:30→17:30)
[2017-09-22] MEDS ORDERED: DOBUTamine-DoBUTrex 500mg/D5W 250 ML IV SCH (15:35)
[2017-09-22] MEDS ORDERED: DOBUTamine-DoBUTrex 500mg/D5W 250 ML IV ONE (15:37)
[2017-09-22] MEDS ORDERED: DOPamine 400mg/D5W 250ml 250 ML IV ONE (17:31)
[2017-09-22] MEDS ORDERED: linezolid 600mg/300ml PREMIX 300 ML IV SCH (17:40)
[2017-09-22] MEDS: Protein Smoothie (high protein) 240ml (8oz) cup PO SCH (18:00)
[2017-09-22 18:15] LABS: BASOPHILS % (AUTO) 0.2 % (0-1); EOSINOPHILS # (AUTO) 0.5 X10'3 (0-0.9); EOSINOPHILS % (AUTO) 3.2 % (0-6); HEMATOCRIT 28.8 % (42.0-52.0); HEMOGLOBIN 9.4 g/dl (14.0-17.9); LYMPHOCYTES # (AUTO) 0.8 X10'3 (1.1-4.8); LYMPHOCYTES % (AUTO) 4.7 % (21-51); MEAN CORPUSCULAR HEMOGLOBIN 31.1 PG (27.0-31.0); MEAN CORPUSCULAR HGB CONC 32.6 % (33.0-36.5); MEAN CORPUSCULAR VOLUME 95.3 FL (78-98); MEAN PLATELET VOLUME 9.6 FL (7.4-10.4); MONOCYTES # (AUTO) 0.7 X10'3 (0-0.9); MONOCYTES % (AUTO) 4.4 % (2-12); NEUTROPHILS # (AUTO) 14.4 X10'3 (1.8-7.7); NEUTROPHILS % (AUTO) 87.5 % (42-75); PLATELET COUNT 195 X10'3 (140-440); RED BLOOD COUNT 3.03 X10'6 (4.70-6.10); WHITE BLOOD COUNT 16.5 X10'3 (4.5-11.0)
[2017-09-22] MEDS ORDERED: vancomycin/NS 1 GM ADD-VANTAGE 250 ML IV ONE (19:20)
[2017-09-22] MEDS ORDERED: vancomycin inj 1,250 MG in normal saline 250ml IV soln 250 ML IV SCH (20:00)
[2017-09-22 20:23] LABS: ALANINE AMINOTRANSFERASE 731 U/L (12-78); ALBUMIN 2.3 G/DL (3.4-5.0); ALBUMIN/GLOBULIN RATIO 0.6 (1.1-1.5); ALKALINE PHOSPHATASE 209 IU/L (46-116); ASPARTATE AMINO TRANSFERASE 340 U/L (10-37); BILIRUBIN,DIRECT 0.4 MG/DL (0-0.3); BILIRUBIN,TOTAL 0.9 MG/DL (0.1-1.0); TOTAL PROTEIN 6.1 G/DL (6.4-8.2)
[2017-09-22] MEDS: hydrocortisone sod succ/PF 100mg/2ml inj. IV SCH (20:38)
[2017-09-22] MEDS: linezolid 600mg/300ml PREMIX 300 ML IV SCH (20:38)
[2017-09-22] MEDS: tamsulosin 0.4mg capsule PO SCH (21:00)
[2017-09-23] VITALS (20 sets, daily range): BP systolic 79–140; BP diastolic 37–67
[2017-09-23] MEDS: hydrocortisone sod succ/PF 100mg/2ml inj. IV SCH ×4 (03:23→20:05)
[2017-09-23 05:06] LABS: BASOPHILS % (AUTO) 0 % (0-1); EOSINOPHILS # (AUTO) 0.2 X10'3 (0-0.9); EOSINOPHILS % (AUTO) 1.8 % (0-6); HEMATOCRIT 28.2 % (42.0-52.0); HEMOGLOBIN 9.1 g/dl (14.0-17.9); LYMPHOCYTES # (AUTO) 0.3 X10'3 (1.1-4.8); LYMPHOCYTES % (AUTO) 3.1 % (21-51); MEAN CORPUSCULAR HEMOGLOBIN 30.7 PG (27.0-31.0); MEAN CORPUSCULAR HGB CONC 32.2 % (33.0-36.5); MEAN CORPUSCULAR VOLUME 95.3 FL (78-98); MEAN PLATELET VOLUME 9.7 FL (7.4-10.4); MONOCYTES # (AUTO) 0.3 X10'3 (0-0.9); MONOCYTES % (AUTO) 2.6 % (2-12); NEUTROPHILS % (AUTO) 92.5 % (42-75); PLATELET COUNT 186 X10'3 (140-440); RED BLOOD COUNT 2.96 X10'6 (4.70-6.10); RED CELL DISTRIBUTION WIDTH 18.2 % (11.5-14.5); WHITE BLOOD COUNT 10.8 X10'3 (4.5-11.0)
[2017-09-23 05:11] LABS: INR 1.6 INR; PARTIAL THROMBOPLASTIN TIME 46 SECONDS (22-32); PROTHROMBIN TIME 16.1 SECONDS (9.0-12.0)
[2017-09-23] MEDS: normal saline 1000ml 1,000 ML IV SCH ×3 (05:11→16:28)
[2017-09-23 05:15] LABS: ALANINE AMINOTRANSFERASE 551 U/L (12-78); ALBUMIN 1.9 G/DL (3.4-5.0); ALBUMIN/GLOBULIN RATIO 0.6 (1.1-1.5); ALKALINE PHOSPHATASE 171 IU/L (46-116); ANION GAP 6 (8-16); ASPARTATE AMINO TRANSFERASE 217 U/L (10-37); BILIRUBIN,TOTAL 0.7 MG/DL (0.1-1.0); BLOOD UREA NITROGEN 39 MG/DL (7-18); BUN/CREATININE RATIO 28.9 (5.4-32.0); CALCIUM 7.5 MG/DL (8.5-10.1); CHLORIDE 97 MMOL/L (99-107); CREATININE 1.35 MG/DL (0.60-1.10); GLUCOSE 232 MG/DL (70-104); MAGNESIUM 1.2 MG/DL (1.5-2.4); POTASSIUM 3.5 MMOL/L (3.5-5.1); SODIUM 128 MMOL/L (135-145); TOTAL CARBON DIOXIDE 24.8 MMOL/L (24-32); TOTAL PROTEIN 5.2 G/DL (6.4-8.2); eGFR 52 ML/MIN
[2017-09-23 06:11] LABS: TROPONIN I 0.14 NG/ML (0.0-0.05)
[2017-09-23] MEDS: carVEDilol 3.125mg tablet PO SCH ×2 (08:00→19:56)
[2017-09-23] MEDS: K, MAG and/or Phos replacement - Verify level? MC SCH (08:00)
[2017-09-23] MEDS: linezolid 600mg/300ml PREMIX 300 ML IV SCH (08:32)
[2017-09-23] MEDS: amiodarone 200mg tablet PO SCH ×2 (08:32→20:05)
[2017-09-23] MEDS: magnesium Cl slow-release 64mg tablet PO PRN ×2 (08:33→22:47)
[2017-09-23] MEDS: vitamin D (cholecalciferol) 1,000 unit tablet PO SCH (08:33)
[2017-09-23 08:36] LABS: PHOSPHORUS 2.1 MG/DL (2.3-4.5)
[2017-09-23] MEDS: Protein Smoothie (high protein) 240ml (8oz) cup PO SCH ×3 (08:48→18:00)
[2017-09-23] MEDS: pantoprazole 40mg Tablet.DR PO SCH (08:48)
[2017-09-23] MEDS: furosemide 40mg tablet PO SCH ×2 (08:48→19:56)
[2017-09-23] MEDS: glipizide 5mg tablet PO SCH (08:48)
[2017-09-23] MEDS: Neutra Phos packet PO PRN ×3 (12:36→22:46)
[2017-09-23] MEDS: levoFLOXACIN 250mg tablet PO SCH (12:36)
[2017-09-23] MEDS ORDERED: dextrose 50%-water 50ml dispensing syringe IV PRN ×2 (12:45)
[2017-09-23] MEDS ORDERED: MESSAGE TO PHARMACY PO ONE (12:45)
[2017-09-23] MEDS ORDERED: dextrose ORAL solution 15 GM/59 ML bottle PO PRN ×2 (12:45)
[2017-09-23] MEDS ORDERED: glucagon, human recombinant 1mg kit SUBCUT PRN (12:45)
[2017-09-23] MEDS: lisinopril 2.5mg tablet PO SCH (13:56)
[2017-09-23] MEDS: insulin Lispro (HumaLOG) vial - multi-dose SQ SCH ×2 (14:08→20:03)
[2017-09-23] MEDS: linezolid 600mg tablet PO SCH (20:06)
[2017-09-23] MEDS: Insulin Detemir pen SQ SCH (21:00)
[2017-09-23] MEDS: tamsulosin 0.4mg capsule PO SCH (21:00)
[2017-09-24] MEDS: hydrocortisone sod succ/PF 100mg/2ml inj. IV SCH ×4 (02:18→19:16)
[2017-09-24] MEDS: normal saline 1000ml 1,000 ML IV SCH ×3 (02:18→23:04)
[2017-09-24 03:00] VITALS: BP 97/50
[2017-09-24 06:00] VITALS: BP 107/49
[2017-09-24 06:02] LABS: BASOPHILS % (AUTO) 0.2 % (0-1); EOSINOPHILS # (AUTO) 0.1 X10'3 (0-0.9); EOSINOPHILS % (AUTO) 1.1 % (0-6); HEMATOCRIT 26.8 % (42.0-52.0); HEMOGLOBIN 8.6 g/dl (14.0-17.9); LYMPHOCYTES # (AUTO) 0.7 X10'3 (1.1-4.8); LYMPHOCYTES % (AUTO) 7.3 % (21-51); MEAN CORPUSCULAR HEMOGLOBIN 30.7 PG (27.0-31.0); MEAN CORPUSCULAR HGB CONC 32.3 % (33.0-36.5); MEAN CORPUSCULAR VOLUME 94.9 FL (78-98); MEAN PLATELET VOLUME 9.6 FL (7.4-10.4); MONOCYTES # (AUTO) 0.5 X10'3 (0-0.9); MONOCYTES % (AUTO) 5.4 % (2-12); NEUTROPHILS # (AUTO) 7.9 X10'3 (1.8-7.7); PLATELET COUNT 170 X10'3 (140-440); RED BLOOD COUNT 2.82 X10'6 (4.70-6.10); RED CELL DISTRIBUTION WIDTH 18.2 % (11.5-14.5); WHITE BLOOD COUNT 9.1 X10'3 (4.5-11.0)
[2017-09-24 06:16] LABS: INR 1.3 INR; PARTIAL THROMBOPLASTIN TIME 37 SECONDS (22-32); PROTHROMBIN TIME 13.4 SECONDS (9.0-12.0)
[2017-09-24 06:30] LABS: ALANINE AMINOTRANSFERASE 419 U/L (12-78); ALBUMIN/GLOBULIN RATIO 0.6 (1.1-1.5); ALKALINE PHOSPHATASE 148 IU/L (46-116); ANION GAP 8 (8-16); ASPARTATE AMINO TRANSFERASE 131 U/L (10-37); BILIRUBIN,TOTAL 0.8 MG/DL (0.1-1.0); BLOOD UREA NITROGEN 27 MG/DL (7-18); BUN/CREATININE RATIO 26.2 (5.4-32.0); CALCIUM 7.4 MG/DL (8.5-10.1); CHLORIDE 100 MMOL/L (99-107); CREATININE 1.03 MG/DL (0.60-1.10); GLUCOSE 161 MG/DL (70-104); MAGNESIUM 1.4 MG/DL (1.5-2.4); POTASSIUM 3.8 MMOL/L (3.5-5.1); SODIUM 132 MMOL/L (135-145); TOTAL CARBON DIOXIDE 23.7 MMOL/L (24-32); TOTAL PROTEIN 5.1 G/DL (6.4-8.2); eGFR 71 ML/MIN
[2017-09-24] MEDS: lisinopril 2.5mg tablet PO SCH (07:19)
[2017-09-24] MEDS: LACTOBACILLUS RHAMNOSUS GG 15 billion unit sprinkle caps PO SCH (07:19)
[2017-09-24] MEDS: pantoprazole 40mg Tablet.DR PO SCH (07:20)
[2017-09-24] MEDS: linezolid 600mg tablet PO SCH ×2 (07:20→19:17)
[2017-09-24] MEDS: magnesium Cl slow-release 64mg tablet PO PRN (07:20)
[2017-09-24] MEDS: amiodarone 200mg tablet PO SCH ×2 (07:21→19:17)
[2017-09-24] MEDS: vitamin D (cholecalciferol) 1,000 unit tablet PO SCH (07:21)
[2017-09-24] MEDS: carVEDilol 3.125mg tablet PO SCH ×2 (07:21→19:16)
[2017-09-24] MEDS: furosemide 40mg tablet PO SCH ×2 (07:22→19:17)
[2017-09-24] MEDS: K, MAG and/or Phos replacement - Verify level? MC SCH (07:26)
[2017-09-24] MEDS: Protein Smoothie (high protein) 240ml (8oz) cup PO SCH ×3 (08:53→18:00)
[2017-09-24] MEDS: insulin Lispro (HumaLOG) vial - multi-dose SQ SCH ×2 (09:27→19:26)
[2017-09-24 11:00] VITALS: BP 108/53
[2017-09-24 15:00] VITALS: BP 108/40
[2017-09-24 19:00] VITALS: BP 100/43
[2017-09-24] MEDS: Insulin Detemir pen SQ SCH (21:00)
[2017-09-24] MEDS: tamsulosin 0.4mg capsule PO SCH (21:32)
[2017-09-24 23:00] VITALS: BP 101/50
[2017-09-25] MEDS: hydrocortisone sod succ/PF 100mg/2ml inj. IV SCH ×4 (02:23→20:56)
[2017-09-25 03:00] VITALS: BP 84/48
[2017-09-25 06:00] VITALS: BP 115/59
[2017-09-25 06:24] LABS: BASOPHILS % (AUTO) 0 % (0-1); EOSINOPHILS # (AUTO) 0.1 X10'3 (0-0.9); HEMATOCRIT 27.8 % (42.0-52.0); HEMOGLOBIN 9.1 g/dl (14.0-17.9); LYMPHOCYTES # (AUTO) 0.7 X10'3 (1.1-4.8); LYMPHOCYTES % (AUTO) 7.7 % (21-51); MEAN CORPUSCULAR HEMOGLOBIN 30.8 PG (27.0-31.0); MEAN CORPUSCULAR HGB CONC 32.8 % (33.0-36.5); MEAN CORPUSCULAR VOLUME 93.9 FL (78-98); MEAN PLATELET VOLUME 9.1 FL (7.4-10.4); MONOCYTES # (AUTO) 0.5 X10'3 (0-0.9); MONOCYTES % (AUTO) 5.5 % (2-12); NEUTROPHILS # (AUTO) 7.9 X10'3 (1.8-7.7); NEUTROPHILS % (AUTO) 85.8 % (42-75); PLATELET COUNT 180 X10'3 (140-440); RED BLOOD COUNT 2.97 X10'6 (4.70-6.10); RED CELL DISTRIBUTION WIDTH 18.4 % (11.5-14.5); WHITE BLOOD COUNT 9.1 X10'3 (4.5-11.0)
[2017-09-25 06:36] LABS: INR 1.2 INR; PARTIAL THROMBOPLASTIN TIME 32 SECONDS (22-32); PROTHROMBIN TIME 12.7 SECONDS (9.0-12.0)
[2017-09-25 06:37] LABS: ALANINE AMINOTRANSFERASE 345 U/L (12-78); ALBUMIN/GLOBULIN RATIO 0.6 (1.1-1.5); ALKALINE PHOSPHATASE 135 IU/L (46-116); ANION GAP 10 (8-16); ASPARTATE AMINO TRANSFERASE 82 U/L (10-37); BILIRUBIN,TOTAL 0.6 MG/DL (0.1-1.0); BLOOD UREA NITROGEN 26 MG/DL (7-18); BUN/CREATININE RATIO 23.6 (5.4-32.0); CALCIUM 7.6 MG/DL (8.5-10.1); CHLORIDE 103 MMOL/L (99-107); GLUCOSE 168 MG/DL (70-104); MAGNESIUM 1.4 MG/DL (1.5-2.4); POTASSIUM 3.6 MMOL/L (3.5-5.1); SODIUM 135 MMOL/L (135-145); TOTAL CARBON DIOXIDE 22.3 MMOL/L (24-32); TOTAL PROTEIN 5.2 G/DL (6.4-8.2); eGFR 65 ML/MIN
[2017-09-25] MEDS ORDERED: magnesium 4gm in 100ml NS 100 ML IV PRN (06:45)
[2017-09-25] MEDS ORDERED: magnesium 2GM in 50ml NS 50 ML IV PRN (06:45)
[2017-09-25] MEDS: furosemide 40mg tablet PO SCH ×2 (07:41→20:56)
[2017-09-25] MEDS: Protein Smoothie (high protein) 240ml (8oz) cup PO SCH ×3 (07:41→18:30)
[2017-09-25] MEDS: magnesium Cl slow-release 64mg tablet PO PRN ×2 (07:42→20:56)
[2017-09-25] MEDS: amiodarone 200mg tablet PO SCH ×2 (07:42→20:56)
[2017-09-25] MEDS: pantoprazole 40mg Tablet.DR PO SCH (07:42)
[2017-09-25] MEDS: LACTOBACILLUS RHAMNOSUS GG 15 billion unit sprinkle caps PO SCH (07:42)
[2017-09-25] MEDS: vitamin D (cholecalciferol) 1,000 unit tablet PO SCH (07:42)
[2017-09-25] MEDS: lisinopril 2.5mg tablet PO SCH (07:42)
[2017-09-25] MEDS: linezolid 600mg tablet PO SCH ×2 (07:44→20:56)
[2017-09-25] MEDS: carVEDilol 3.125mg tablet PO SCH ×2 (07:45→20:57)
[2017-09-25] MEDS: K, MAG and/or Phos replacement - Verify level? MC SCH (07:53)
[2017-09-25] MEDS: normal saline 1000ml 1,000 ML IV SCH ×2 (09:41→20:56)
[2017-09-25 11:00] VITALS: BP 113/60
[2017-09-25 15:00] VITALS: BP 118/53
[2017-09-25 19:00] VITALS: BP 115/51
[2017-09-25] MEDS: Insulin Detemir pen SQ SCH (20:54)
[2017-09-25] MEDS: tamsulosin 0.4mg capsule PO SCH (20:57)
[2017-09-25 23:00] VITALS: BP 92/44
[2017-09-26] MEDS: hydrocortisone sod succ/PF 100mg/2ml inj. IV SCH ×4 (01:55→20:09)
[2017-09-26 03:00] VITALS: BP 93/38
[2017-09-26] MEDS: normal saline 1000ml 1,000 ML IV SCH ×3 (04:01→15:10)
[2017-09-26 05:12] LABS: BASOPHILS % (AUTO) 0.1 % (0-1); EOSINOPHILS # (AUTO) 0.1 X10'3 (0-0.9); EOSINOPHILS % (AUTO) 1.4 % (0-6); HEMATOCRIT 27.7 % (42.0-52.0); HEMOGLOBIN 8.9 g/dl (14.0-17.9); LYMPHOCYTES # (AUTO) 0.6 X10'3 (1.1-4.8); LYMPHOCYTES % (AUTO) 7.4 % (21-51); MEAN CORPUSCULAR HEMOGLOBIN 30.5 PG (27.0-31.0); MEAN CORPUSCULAR HGB CONC 32.1 % (33.0-36.5); MEAN CORPUSCULAR VOLUME 94.9 FL (78-98); MEAN PLATELET VOLUME 8.4 FL (7.4-10.4); MONOCYTES # (AUTO) 0.5 X10'3 (0-0.9); MONOCYTES % (AUTO) 5.9 % (2-12); NEUTROPHILS # (AUTO) 6.7 X10'3 (1.8-7.7); NEUTROPHILS % (AUTO) 85.2 % (42-75); PLATELET COUNT 186 X10'3 (140-440); RED BLOOD COUNT 2.92 X10'6 (4.70-6.10); RED CELL DISTRIBUTION WIDTH 18.5 % (11.5-14.5); WHITE BLOOD COUNT 7.8 X10'3 (4.5-11.0)
[2017-09-26 05:30] LABS: INR 1.2 INR; PARTIAL THROMBOPLASTIN TIME 30 SECONDS (22-32); PROTHROMBIN TIME 12.3 SECONDS (9.0-12.0)
[2017-09-26 05:33] LABS: ALANINE AMINOTRANSFERASE 269 U/L (12-78); ALBUMIN 2.1 G/DL (3.4-5.0); ALBUMIN/GLOBULIN RATIO 0.7 (1.1-1.5); ALKALINE PHOSPHATASE 125 IU/L (46-116); ANION GAP 9 (8-16); ASPARTATE AMINO TRANSFERASE 44 U/L (10-37); BILIRUBIN,TOTAL 0.5 MG/DL (0.1-1.0); BLOOD UREA NITROGEN 24 MG/DL (7-18); BUN/CREATININE RATIO 21.6 (5.4-32.0); CALCIUM 7.4 MG/DL (8.5-10.1); CHLORIDE 104 MMOL/L (99-107); CREATININE 1.11 MG/DL (0.60-1.10); GLUCOSE 187 MG/DL (70-104); MAGNESIUM 1.1 MG/DL (1.5-2.4); POTASSIUM 3.3 MMOL/L (3.5-5.1); SODIUM 137 MMOL/L (135-145); TOTAL CARBON DIOXIDE 23.6 MMOL/L (24-32); TOTAL PROTEIN 5.1 G/DL (6.4-8.2); eGFR 65 ML/MIN
[2017-09-26 06:00] VITALS: BP 124/61
[2017-09-26] MEDS: magnesium Cl slow-release 64mg tablet PO PRN (08:01)
[2017-09-26] MEDS: linezolid 600mg tablet PO SCH ×2 (08:01→20:09)
[2017-09-26] MEDS: potassium Cl 20 mEq SR tablet PO PRN ×4 (08:01→21:08)
[2017-09-26] MEDS: LACTOBACILLUS RHAMNOSUS GG 15 billion unit sprinkle caps PO SCH (08:02)
[2017-09-26] MEDS: lisinopril 2.5mg tablet PO SCH (08:02)
[2017-09-26] MEDS: vitamin D (cholecalciferol) 1,000 unit tablet PO SCH (08:02)
[2017-09-26] MEDS: carVEDilol 3.125mg tablet PO SCH ×2 (08:02→20:09)
[2017-09-26] MEDS: amiodarone 200mg tablet PO SCH ×2 (08:02→20:09)
[2017-09-26] MEDS: pantoprazole 40mg Tablet.DR PO SCH (08:02)
[2017-09-26] MEDS: furosemide 40mg tablet PO SCH ×2 (08:02→20:09)
[2017-09-26] MEDS: Protein Smoothie (high protein) 240ml (8oz) cup PO SCH ×3 (08:02→18:04)
[2017-09-26] MEDS: K, MAG and/or Phos replacement - Verify level? MC SCH (08:08)
[2017-09-26 11:00] VITALS: BP 134/64
[2017-09-26] MEDS: insulin Lispro (HumaLOG) vial - multi-dose SQ SCH ×2 (14:18→19:25)
[2017-09-26 15:00] VITALS: BP 121/57
[2017-09-26 18:00] VITALS: BP 119/63
[2017-09-26] MEDS: tamsulosin 0.4mg capsule PO SCH (20:09)
[2017-09-26] MEDS: Insulin Detemir pen SQ SCH (21:59)
[2017-09-26 23:00] VITALS: BP 118/64
[2017-09-27] MEDS: hydrocortisone sod succ/PF 100mg/2ml inj. IV SCH ×4 (01:52→20:09)
[2017-09-27 03:00] VITALS: BP 117/55
[2017-09-27 06:00] VITALS: BP 148/74
[2017-09-27 06:25] LABS: BASOPHILS % (AUTO) 0.1 % (0-1); EOSINOPHILS # (AUTO) 0.1 X10'3 (0-0.9); EOSINOPHILS % (AUTO) 1.3 % (0-6); HEMATOCRIT 29.6 % (42.0-52.0); HEMOGLOBIN 9.5 g/dl (14.0-17.9); LYMPHOCYTES # (AUTO) 0.7 X10'3 (1.1-4.8); LYMPHOCYTES % (AUTO) 7.1 % (21-51); MEAN CORPUSCULAR HEMOGLOBIN 30.1 PG (27.0-31.0); MEAN CORPUSCULAR HGB CONC 32.1 % (33.0-36.5); MEAN CORPUSCULAR VOLUME 93.9 FL (78-98); MEAN PLATELET VOLUME 8.5 FL (7.4-10.4); MONOCYTES # (AUTO) 0.4 X10'3 (0-0.9); MONOCYTES % (AUTO) 4.6 % (2-12); NEUTROPHILS % (AUTO) 86.9 % (42-75); PLATELET COUNT 185 X10'3 (140-440); RED BLOOD COUNT 3.16 X10'6 (4.70-6.10); RED CELL DISTRIBUTION WIDTH 18.6 % (11.5-14.5); WHITE BLOOD COUNT 9.2 X10'3 (4.5-11.0)
[2017-09-27 06:37] LABS: INR 1.2 INR; PARTIAL THROMBOPLASTIN TIME 27 SECONDS (22-32); PROTHROMBIN TIME 12.1 SECONDS (9.0-12.0)
[2017-09-27 06:46] LABS: ALANINE AMINOTRANSFERASE 216 U/L (12-78); ALBUMIN 2.2 G/DL (3.4-5.0); ALBUMIN/GLOBULIN RATIO 0.7 (1.1-1.5); ALKALINE PHOSPHATASE 117 IU/L (46-116); ANION GAP 9 (8-16); ASPARTATE AMINO TRANSFERASE 31 U/L (10-37); BILIRUBIN,TOTAL 0.5 MG/DL (0.1-1.0); BLOOD UREA NITROGEN 22 MG/DL (7-18); BUN/CREATININE RATIO 21.8 (5.4-32.0); CALCIUM 7.6 MG/DL (8.5-10.1); CHLORIDE 107 MMOL/L (99-107); CREATININE 1.01 MG/DL (0.60-1.10); GLUCOSE 88 MG/DL (70-104); MAGNESIUM 1.5 MG/DL (1.5-2.4); SODIUM 141 MMOL/L (135-145); TOTAL PROTEIN 5.2 G/DL (6.4-8.2); eGFR 72 ML/MIN
[2017-09-27] MEDS: furosemide 40mg tablet PO SCH ×2 (07:51→20:09)
[2017-09-27] MEDS: pantoprazole 40mg Tablet.DR PO SCH (07:51)
[2017-09-27] MEDS: potassium Cl 20 mEq SR tablet PO PRN ×4 (07:51→20:46)
[2017-09-27] MEDS: vitamin D (cholecalciferol) 1,000 unit tablet PO SCH (07:52)
[2017-09-27] MEDS: linezolid 600mg tablet PO SCH ×2 (07:52→20:08)
[2017-09-27] MEDS: LACTOBACILLUS RHAMNOSUS GG 15 billion unit sprinkle caps PO SCH (07:52)
[2017-09-27] MEDS: K, MAG and/or Phos replacement - Verify level? MC SCH (07:53)
[2017-09-27] MEDS: magnesium Cl slow-release 64mg tablet PO PRN (07:53)
[2017-09-27] MEDS: amiodarone 200mg tablet PO SCH ×2 (07:53→20:08)
[2017-09-27] MEDS: Protein Smoothie (high protein) 240ml (8oz) cup PO SCH ×3 (07:55→18:00)
[2017-09-27] MEDS: carVEDilol 3.125mg tablet PO SCH ×2 (08:00→20:00)
[2017-09-27] MEDS: lisinopril 2.5mg tablet PO SCH (08:00)
[2017-09-27 11:00] VITALS: BP 125/60
[2017-09-27 13:52] LABS: MAGNESIUM 1.3 MG/DL (1.5-2.4)
[2017-09-27] MEDS: normal saline 1000ml 1,000 ML IV SCH ×2 (14:07→20:55)
[2017-09-27 15:00] VITALS: BP 135/65
[2017-09-27 18:00] VITALS: BP 132/59
[2017-09-27] MEDS: tamsulosin 0.4mg capsule PO SCH (20:09)
[2017-09-27 20:20] LABS: MAGNESIUM 2.3 MG/DL (1.5-2.4); POTASSIUM 3.8 MMOL/L (3.5-5.1)
[2017-09-27 23:00] VITALS: BP 135/65
[2017-09-27] MEDS: Insulin Detemir pen SQ SCH (23:41)
[2017-09-28] MEDS: hydrocortisone sod succ/PF 100mg/2ml inj. IV SCH ×3 (01:49→13:15)
[2017-09-28] MEDS: normal saline 1000ml 1,000 ML IV SCH ×2 (02:21→13:16)
[2017-09-28 03:00] VITALS: BP 138/68
[2017-09-28 05:10] LABS: BASOPHILS % (AUTO) 0 % (0-1); EOSINOPHILS # (AUTO) 0.2 X10'3 (0-0.9); EOSINOPHILS % (AUTO) 1.7 % (0-6); HEMOGLOBIN 9.7 g/dl (14.0-17.9); LYMPHOCYTES # (AUTO) 0.6 X10'3 (1.1-4.8); LYMPHOCYTES % (AUTO) 6.3 % (21-51); MEAN CORPUSCULAR HEMOGLOBIN 30.1 PG (27.0-31.0); MEAN CORPUSCULAR HGB CONC 32.2 % (33.0-36.5); MEAN CORPUSCULAR VOLUME 93.6 FL (78-98); MEAN PLATELET VOLUME 8.2 FL (7.4-10.4); MONOCYTES # (AUTO) 0.3 X10'3 (0-0.9); MONOCYTES % (AUTO) 3.3 % (2-12); NEUTROPHILS # (AUTO) 8.1 X10'3 (1.8-7.7); NEUTROPHILS % (AUTO) 88.7 % (42-75); PLATELET COUNT 176 X10'3 (140-440); RED BLOOD COUNT 3.21 X10'6 (4.70-6.10); RED CELL DISTRIBUTION WIDTH 18.4 % (11.5-14.5); WHITE BLOOD COUNT 9.1 X10'3 (4.5-11.0)
[2017-09-28 05:19] LABS: INR 1.2 INR; PARTIAL THROMBOPLASTIN TIME 26 SECONDS (22-32)
[2017-09-28 05:27] LABS: ALANINE AMINOTRANSFERASE 182 U/L (12-78); ALBUMIN 2.2 G/DL (3.4-5.0); ALBUMIN/GLOBULIN RATIO 0.8 (1.1-1.5); ALKALINE PHOSPHATASE 114 IU/L (46-116); ANION GAP 7 (8-16); ASPARTATE AMINO TRANSFERASE 31 U/L (10-37); BILIRUBIN,TOTAL 0.6 MG/DL (0.1-1.0); BLOOD UREA NITROGEN 23 MG/DL (7-18); BUN/CREATININE RATIO 22.5 (5.4-32.0); CALCIUM 7.7 MG/DL (8.5-10.1); CHLORIDE 107 MMOL/L (99-107); CREATININE 1.02 MG/DL (0.60-1.10); GLUCOSE 189 MG/DL (70-104); MAGNESIUM 1.9 MG/DL (1.5-2.4); POTASSIUM 3.9 MMOL/L (3.5-5.1); SODIUM 141 MMOL/L (135-145); eGFR 71 ML/MIN
[2017-09-28 06:00] VITALS: BP 133/69
[2017-09-28] MEDS: LACTOBACILLUS RHAMNOSUS GG 15 billion unit sprinkle caps PO SCH (08:31)
[2017-09-28] MEDS: linezolid 600mg tablet PO SCH (08:31)
[2017-09-28] MEDS: potassium Cl 20 mEq SR tablet PO PRN ×2 (08:32→13:15)
[2017-09-28] MEDS: insulin Lispro (HumaLOG) vial - multi-dose SQ SCH ×2 (08:33→13:14)
[2017-09-28] MEDS: carVEDilol 3.125mg tablet PO SCH (08:33)
[2017-09-28] MEDS: vitamin D (cholecalciferol) 1,000 unit tablet PO SCH (08:34)
[2017-09-28] MEDS: Protein Smoothie (high protein) 240ml (8oz) cup PO SCH ×2 (08:34→13:15)
[2017-09-28] MEDS: amiodarone 200mg tablet PO SCH (08:34)
[2017-09-28] MEDS: pantoprazole 40mg Tablet.DR PO SCH (08:34)
[2017-09-28] MEDS: furosemide 40mg tablet PO SCH (08:34)
[2017-09-28] MEDS: lisinopril 2.5mg tablet PO SCH (08:34)
[2017-09-28] MEDS: K, MAG and/or Phos replacement - Verify level? MC SCH (08:35)
[2017-09-28 11:00] VITALS: BP 131/71
[2017-09-28] MEDS ORDERED: magnesium Cl slow-release 64mg tablet PO PRN (11:35)
[2017-09-28] MEDS ORDERED: LINE600T6 PO (13:32)
[2017-09-28 15:00] VITALS: BP 149/67
== END 2017-09-28 16:55 | DRG 682 ==
LOC: ER 09:35 → ED HOLD 10:56 → CICU 2S 14:04 → PCU 3S 09-23 17:55
PROVIDERS: ADMIT Internal Medicine Critical Care Medicine; ATTEND Internal Medicine Critical Care Medicine
DX: N17.9 Acute kidney failure, unspecified (principal); R65.11 Systemic inflammatory response syndrome (SIRS) of non-infectious origin with acute organ dysfunction; I47.2 Ventricular tachycardia; I50.22 Chronic systolic (congestive) heart failure; E87.1 Hypo-osmolality and hyponatremia; I42.9 Cardiomyopathy, unspecified; N39.0 Urinary tract infection, site not specified; E11.42 Type 2 diabetes mellitus with diabetic polyneuropathy; E11.51 Type 2 diabetes mellitus with diabetic peripheral angiopathy without gangrene; I11.0 Hypertensive heart disease with heart failure; E87.5 Hyperkalemia; E78.5 Hyperlipidemia, unspecified; F10.20 Alcohol dependence, uncomplicated; R74.8 Abnormal levels of other serum enzymes; I25.10 Atherosclerotic heart disease of native coronary artery without angina pectoris; I44.0 Atrioventricular block, first degree; I48.2 Chronic atrial fibrillation; N40.0 Benign prostatic hyperplasia without lower urinary tract symptoms; Z51.5 Encounter for palliative care; Z66 Do not resuscitate; I25.2 Old myocardial infarction; Z95.1 Presence of aortocoronary bypass graft; Z95.5 Presence of coronary angioplasty implant and graft; Z79.899 Other long term (current) drug therapy; Z79.01 Long term (current) use of anticoagulants; Z79.82 Long term (current) use of aspirin; Z79.4 Long term (current) use of insulin; Z86.79 Personal history of other diseases of the circulatory system
CPT/HCPCS: 36415; 71045; 80053; 80076; 80162; 81001; 82533; 82948; 83605; 83735; 83880; 84100; 84132; 84145; 84439; 84443; 84484; 85025; 85610; 85730; 87040; 87070; 87077; 87088; 87186; 93005; 97110; 97116; 97161; 97530; 99291; A4315; A4353; A6213; A6250; A6449; A9270; C1758; J0282; J1250; J1265; J1644; J1720; J2020; J3370; J3475; J7030